=== PATIENT | female | born 1930 | race Caucasian/White ===

== ENCOUNTER 2016-08-03 20:02 | Emergency (ER) | payer MEDICARE ==
[~2016-08-03] VITALS: Ht 160 cm; Wt 62.0 kg
[~2016-08-03 20:02] MED LIST: ASPI81TA82 PO; BENZ100 PO; GLIM2TAB PO; LEVO125T3 PO; LOVA20TA PO; METO50 PO; TRIA37.512; ZITH250T PO
[2016-08-03 20:05] VITALS: BP 218/93; PULSE 70; RESP 20; TEMP 98; O2SAT 97
--- NOTE | 2016-08-03 20:30 | PD ---
HPI Chief Complaint: Fall Time Seen by Provider: 20:30 Travel History International Travel<30 days: No Contact w/Intl Traveler<30days: No Traveled to known affect area: No History of Present Illness HPI 86-year-old female with history of hypertension, diabetes, CAD, on anticoagulation therapy, presents to the emergency department for evaluation following a trip and fall. Patient states that she was [place] out[place] and stepped off of the curb. When she misstepped she fell wrecking her right side on the ground. She reports right rib pain. She did strike her head. She did not lose consciousness. She denies a shortness of breath. No focal deficits or weakness. Patient was able to ambulate after being helped up. She denies any hip pain or back pain. She has no other symptoms at this time to report. PFSH Past Medical History Hx Anticoagulant Therapy: Yes Arthritis: Yes Asthma: No Anxiety: No Depression: No Heart Rhythm Problems: No Cancer: No Cardiovascular Problems: Yes ([place], STENTS, HTN) High Cholesterol: Yes Chest Pain: No Congestive Heart Failure: No COPD: No Diabetes: Yes Patient Takes Glucophage: Yes (08/03/16 0900) Diminished Hearing: Yes ([facility] RIGHT EAR) Endocrine: Yes Genitourinary: No Hiatal Hernia: No Hypertension: Yes Immune Disorder: No Kidney Stones: No Musculoskeletal: Yes Neurologic: No Psychiatric: No Reproductive: No Respiratory: No Sickle Cell Disease: No Sleep Apnea: No Thyroid Disease: Yes Ulcer: No Tetanus Vaccination: Unknown Menopausal: Yes Past Surgical History AICD: No Arteriovenous Shunt: No Ear Surgery: No Endocrine Surgery: No Eye Surgery: No Insulin Pump: No Oral Surgery: No Pacemaker: No Social History Alcohol Use: Yes (1 DRINK WEEK) Tobacco Use: No Substance Use: No Allergies-Medications (Allergen,Severity, Reaction): Coded Allergies: Codeine (Verified Adverse Reaction, Intermediate, Rash, 04/10/14) Uncoded Allergies: AN UNKNOWN ANTIBIOTIC...PCN OK (Allergy, Unknown, 12/06/05) Reported Meds & Prescriptions Reported Meds & Active Scripts Active Reported Levothyroxine (Levothyroxine Sodium) 125 Mcg Tab 125 Mcg PO DAILY Metoprolol Tartrate 50 Mg Tab 50 Mg PO BID Lovastatin 20 Mg Tab 20 Mg PO HS Triamterene-Hydrochlorothiazide 37.5-25 Mg Tab 1 Tab PO DAILY Aspirin EC (Aspirin) 81 Mg Tabdr 81 Mg PO HS Glimepiride 1 Mg Tab 1 Mg PO DAILY Take with breakfast or first main meal Review of Systems Except as stated in HPI: all other systems reviewed are Neg Physical Exam Narrative GENERAL: Well-nourished female patient, ambulatory no acute distress SKIN: Focused skin assessment warm/dry. Abrasion to the right superior eyelid and right temporal bridle scalp. There is an abrasion of the muscle aspect of the right fourth digit. There is also abrasion on the right knee. HEAD: Atraumatic. Normocephalic. EYES: Pupils equal and round. No scleral icterus. No injection or drainage. ENT: No nasal bleeding or discharge. Mucous membranes pink and moist. NECK: Trachea midline. No JVD. CARDIOVASCULAR: Regular rate and rhythm. He over 6 systolic murmur appreciated. RESPIRATORY: No accessory muscle use. Clear to auscultation. Breath sounds equal bilaterally. Tenderness elicited palpation of the right anterior lateral rib cage. No crepitus. No deformity. Even respirations. GASTROINTESTINAL: Abdomen soft, non-tender, nondistended. Hepatic and splenic margins not palpable. MUSCULOSKELETAL: No obvious deformities. No clubbing. No cyanosis. No edema. NEUROLOGICAL: Awake and alert. No obvious cranial nerve deficits. Motor grossly within normal limits. Normal speech. PSYCHIATRIC: Appropriate mood and affect; insight and judgment normal. Data Data Last Documented VS Vital Signs Date Time Temp Pulse Resp B/P Pulse Ox O2 Delivery O2 Flow Rate FiO2 08/03/16 20:05 98.0 70 20 218/[address] Brain W/O Iv Contrast(Rout) (08/03/16 ) Ct Cerv Spine W/O Contrast (08/03/16 ) Chest, Single Ap (08/03/16 ) [facility] Medical Decision Making Medical Screen Exam Complete: Yes Emergency Medical Condition: Yes Medical Record Reviewed: Yes Differential Diagnosis Contusion versus fracture versus pneumothorax versus minor head injury versus intracranial hemorrhage versus scalp contusion Narrative Course 86 year-old female presents to emergency department for evaluation following a trip and fall. Patient appears without distress. There are no focal deficits or weakness. She does have abrasion to the right eyelid and temporoparietal scalp. She also has right anterior lateral rib cage tenderness to palpation. CT imaging of the cervical spine and brain are ordered. X-ray imaging of the rib cage is also ordered. At this time patient does not want any pain medication. 2100 CT imaging of the brain and cervical spine are without acute abnormality. X-rays without acute cardiopulmonary disease. Discussed the patient with my attending physician Dr. Bentley Patient will be discharged home at this time. Diagnosis Primary Impression: Minor head injury without loss of consciousness Qualified Code: S09.90XA - Minor head injury without loss of consciousness, initial encounter Additional Impressions: Facial abrasion Qualified Code: S00.81XA - Facial abrasion, initial encounter Contusion of rib on right side Qualified Code: S20.211A - Contusion of rib on right side, initial encounter Referrals: Primary Care Physician Patient Instructions: Facial Contusion (ED), General Instructions, Head Injury (ED), Rib Contusion (ED) Additional Instructions: Ice to the affected area It is important that you continue to take deep breaths to avoid risk of pneumonia despite rib pain Follow-up with a primary care provider Return immediately with any acute worsening of symptoms Take a stool softener and make sure you are drinking plenty of water if you are taking your prescribed narcotic pain medication as this puts you at higher risk for constipation. Med/Other Pt SpecificInfo: No Change to Meds Scripts Hydrocodone-Acetaminophen (Lortab)5-325 Mg Tab1 Tab PO Q6H PRN (PAIN GREATER THAN 6) #10 TAB Ref 0 Prov:Maurice Bentley MD 08/03/16 Disposition: 01 DISCHARGE HOME Condition: Stable Stephanie Saldana VIRIDIANA Aug 03, 2016 20:30
--- NOTE | 2016-08-03 21:06 | RADRPT ---
EXAM DATE/TIME: 08/03/2016 20:50 [facility] COMPARISON: No previous studies available for comparison. INDICATIONS : Chest pain atfer fall. MEDICAL HISTORY : None. SURGICAL HISTORY : None. ENCOUNTER: Initial ACUITY: 1 day PAIN SCORE: 5/10 LOCATION: Bilateral chest FINDINGS: A single view of the chest demonstrates the lungs to be symmetrically aerated without evidence of mas s, infiltrate or effusion. The cardiomediastinal contours are unremarkable. Osseous structures are intact. CONCLUSION: No evidence of acute cardiopulmonary disease. Agustin Martinez MD on August 03, 2016 at 21:03 Board Certified Radiologist. This report was verified electronically.
--- NOTE | 2016-08-03 21:07 | RADRPT ---
EXAM DATE/TIME: 08/03/2016 20:44 [facility] COMPARISON: No previous studies available for comparison. INDICATIONS : Tipped over curb & hit head, right eye bruised RADIATION DOSE: 56.35 CTDIvol (mGy) MEDICAL HISTORY : Cardiovascular disease. Hypertension. Diabetes mellitus type 2. SURGICAL HISTORY : None. ENCOUNTER: Initial ACUITY: 1 day PAIN SCALE: 5/10 LOCATION: Right cranial TECHNIQUE: Multiple contiguous axial images were obtained of the head. Using automated exposure control and adj ustment of the mA and/or kV according to patient size, radiation dose was kept as low as reasonably a chievable to obtain optimal diagnostic quality images. FINDINGS: CEREBRUM: The ventricles are normal for age. No evidence of midline shift, mass lesion, hemorrhage or acute in farction. No extra-axial fluid collections are seen. POSTERIOR FOSSA: The cerebellum and brainstem are intact. The 4th ventricle is midline. The cerebellopontine angle i s unremarkable. EXTRACRANIAL: The visualized portion of the orbits is intact. SKULL: The calvaria is intact. No evidence of skull fracture. CONCLUSION: Negative noncontrast head CT. Agustin Martinez MD on August 03, 2016 at 21:05 Board Certified Radiologist. This report was verified electronically.
[2016-08-03] MEDS ORDERED: TRIA37.5 PO (21:08)
[2016-08-03] MEDS ORDERED: METO50TA PO (21:08)
[2016-08-03] MEDS ORDERED: GLIM1TAB PO (21:08)
[2016-08-03] MEDS ORDERED: LOVA20TA PO (21:08)
[2016-08-03] MEDS ORDERED: ASPI81TA11 PO (21:08)
[2016-08-03] MEDS ORDERED: LEVO125T4 PO (21:09)
--- NOTE | 2016-08-03 21:10 | RADRPT ---
EXAM DATE/TIME: 08/03/2016 20:44 [facility] COMPARISON: No previous studies available for comparison. INDICATIONS : Tripped over a curb & hit head, right eye bruised. RADIATION DOSE: 31.98 CTDIvol (mGy) MEDICAL HISTORY : Cardiovascular disease. Hypertension. Diabetes mellitus type 2. SURGICAL HISTORY : None. ENCOUNTER: Initial ACUITY: 1 day PAIN SCALE: 4/10 LOCATION: neck TECHNIQUE: Volumetric scanning of the cervical spine was performed. Multiplanar reconstructions in the sagittal, coronal and oblique axial planes were performed. Using automated exposure control and adjustment o f the mA and/or kV according to patient size, radiation dose was kept as low as reasonably achievable to obtain optimal diagnostic quality images. FINDINGS: Cervical lordosis is exaggerated. There is approximately 2 mm of anterolisthesis at C7/T1, appears de generative. No fracture or acute appearing malalignment seen. Vertebral bodies have normal height. There is moderate to severe disc space narrowing at C5/C6 and C6/C7 with uncovertebral and facet oste oarthritis causing bilateral foraminal stenosis. Similar but slightly less severe degenerative change s are seen at C3/C4 and C4/C5 with time early right foraminal stenosis. No significant spinal stenosi s demonstrated. Juxtavertebral soft tissues are within normal limits. CONCLUSION: 1. No fracture or acute appearing malalignment of the cervical spine. 2. Multilevel degenerative changes as above. Agustin Martinez MD on August 03, 2016 at 21:05 Board Certified Radiologist. This report was verified electronically.
[2016-08-03] MEDS ORDERED: HYDR-3533 PO (21:16)
== END 2016-08-03 21:25 | disposition home or self-care (01) ==
LOC: NEPD 20:02
DX: S09.90XA Unspecified injury of head, initial encounter (principal); S20.211A Contusion of right front wall of thorax, initial encounter; S00.211A Abrasion of right eyelid and periocular area, initial encounter; S00.01XA Abrasion of scalp, initial encounter; S80.211A Abrasion, right knee, initial encounter; I10 Essential (primary) hypertension; E11.9 Type 2 diabetes mellitus without complications; E07.9 Disorder of thyroid, unspecified; E78.00 Pure hypercholesterolemia, unspecified; W01.0XXA Fall on same level from slipping, tripping and stumbling without subsequent striking against object, initial encounter; Y92.511 Restaurant or cafe as the place of occurrence of the external cause; Z79.01 Long term (current) use of anticoagulants; Z79.84 Long term (current) use of oral hypoglycemic drugs; Z86.79 Personal history of other diseases of the circulatory system; Z87.39 Personal history of other diseases of the musculoskeletal system and connective tissue
CPT/HCPCS: 70450; 71010; 72125

== ENCOUNTER 2017-09-27 14:05 | Emergency (ER) | payer MEDICARE ==
[~2017-09-27] VITALS: Ht 160 cm; Wt 60.0 kg
[~2017-09-27 14:05] MED LIST changes: +ASPI81TA23 PO; -ASPI81TA82 PO; -BENZ100 PO; +GLIM1TAB PO; -GLIM2TAB PO; +HYDR-3533 PO; -LEVO125T3 PO; +LEVO125T4 PO; -METO50 PO; +METO50TA PO; +TRIA37.5 PO; -TRIA37.512; -ZITH250T PO
[2017-09-27 14:10] VITALS: BP 189/81; PULSE 73; RESP 16; TEMP 97.7; O2SAT 99
[2017-09-27] MEDS ORDERED: traMADol HCL 50 MG TAB PO ONE (17:00)
--- NOTE | 2017-09-27 17:08 | PD ---
HPI Chief Complaint: Back/ Neck Pain or Injury Time Seen by Provider: 16:43 Travel History International Travel<30 days: No Contact w/Intl Traveler<30days: No Traveled to known affect area: No History of Present Illness HPI Patient presents to the emergency department. Patient had an x-ray which supposedly showed arthritis. He had an MRI on yesterday which showed bulging disc and a small bladder tumor. She is here in the emergency department for pain medication, as her primary care doctor did not give her any pain medication but place a pain management referral. She fell 2 weeks ago, which was prior to the MRI, but no recent fall. He states that the doctor gave her shot in the back and a muscle relaxer, but is still in pain. He denies fever, chills, nausea, vomiting, dysuria, urinary frequency, bowel or bladder changes, but reports some numbness and tingling down the right leg. Patient has known renal failure. PFSH Past Medical History Hx Anticoagulant Therapy: Yes Arthritis: Yes Asthma: No Anxiety: No Depression: No Heart Rhythm Problems: No Cancer: No Cardiac Catheterization: Yes Cardiovascular Problems: Yes High Cholesterol: Yes Chest Pain: No Congestive Heart Failure: No COPD: No Diabetes: Yes Patient Takes Glucophage: No Diminished Hearing: Yes ([place] RIGHT EAR) Endocrine: Yes Genitourinary: No Hiatal Hernia: No Hypertension: Yes Immune Disorder: No Kidney Stones: No Musculoskeletal: Yes Neurologic: No Psychiatric: No Reproductive: No Respiratory: No Sickle Cell Disease: No Sleep Apnea: No Thyroid Disease: Yes Ulcer: No Menopausal: Yes Past Surgical History AICD: No Arteriovenous Shunt: No Ear Surgery: No Endocrine Surgery: No Eye Surgery: No Insulin Pump: No Oral Surgery: No Pacemaker: No Social History Alcohol Use: Yes (1 DRINK WEEK) Tobacco Use: No Substance Use: No Allergies-Medications (Allergen,Severity, Reaction): Coded Allergies: codeine (Unverified Adverse Reaction, Intermediate, Rash, 09/27/17) Uncoded Allergies: AN UNKNOWN ANTIBIOTIC...PCN OK (Allergy, Unknown, 12/06/05) Reported Meds & Prescriptions Reported Meds & Active Scripts Active Tramadol (Tramadol HCl) 50 Mg Tab 50 Mg PO Q6H PRN 3 Days Reported Levothyroxine (Levothyroxine Sodium) 125 Mcg Tab 125 Mcg PO DAILY Metoprolol Tartrate 50 Mg Tab 50 Mg PO BID Lovastatin 20 Mg Tab 20 Mg PO HS Triamterene-Hydrochlorothiazide 37.5-25 Mg Tab 1 Tab PO DAILY Aspirin EC (Aspirin) 81 Mg Tabdr 81 Mg PO HS Review of Systems Except as stated in HPI: all other systems reviewed are Neg Physical Exam Narrative GENERAL: In discomfort secondary to pain SKIN: Focused skin assessment warm/dry. HEAD: Atraumatic. Normocephalic. EYES: Pupils equal and round. No scleral icterus. No injection or drainage. ENT: No nasal bleeding or discharge. Mucous membranes pink and moist. NECK: Trachea midline. No JVD. No focal C-spine tenderness. CARDIOVASCULAR: Regular rate and rhythm. No murmur appreciated. RESPIRATORY: No accessory muscle use. Clear to auscultation. Breath sounds equal bilaterally. GASTROINTESTINAL: Abdomen soft, non-tender, nondistended. Hepatic and splenic margins not palpable. MUSCULOSKELETAL: No obvious deformities. No clubbing. No cyanosis. No edema. No focal T or L-spine tenderness.+ R buttock pain. NEUROLOGICAL: Awake and alert. No obvious cranial nerve deficits. Motor grossly within normal limits. Normal speech. PSYCHIATRIC: Appropriate mood and affect; insight and judgment normal. Data Data Last Documented VS Vital Signs Date Time Temp Pulse Resp B/P (MAP) Pulse Ox O2 Delivery O2 Flow Rate FiO2 09/27/17 14:10 97.7 73 16 189/81 (117) 99 Orders Orders Tramadol (Ultram) (09/27/17 17:00) [facility] Medical Decision Making Medical Screen Exam Complete: Yes Emergency Medical Condition: Yes Differential Diagnosis Arthritis, sciatica, fracture/dislocation, bulging discs Narrative Course Patient presents to the emergency department complaining of back pain. MRI yesterday showed bulging disc. Will give tramadol 50 mg p.o. 1. 172: Patient reports feeling better after tramadol. She is ambulating in the ER. Will d/c. Physician Communication Physician Communication [id number]: Spoke to Dr. Horne, patient's PCP. He advised that she has known renal failure, so no NSAIDS. MRI showed bulging discs and small bladder tumor, which he doesn't think is causing the pain. He placed a urology referral. Also, referred to pain clinic. Request that I d/c her with tramdol 50mg po q6hrs prn x 3 days. She should call his office in the morning for a followup evaluation appointment. He states that her codeine allergy is nausea. Diagnosis Primary Impression: Back pain Qualified Codes: M54.41 - Lumbago with sciatica, right side Patient Instructions: Back Pain (ED), General Instructions Additional Instructions: 1. Meds as directed. 2. Call primary care doctor in the morning fro followup appointment. 3. Followup with Pain Management referral. 4. return to ER immediately fro fever, vomiting, inability to control bowel/bladder, or for any new/worrisome/worsening symptoms. Med/Other Pt SpecificInfo: Prescription(s) given Scripts Tramadol (Tramadol) 50 Mg Tab 50 MG PO Q6H Y for PAIN for 3 Days, #12 TAB 0 Refills Prov: Jacquelyn Vincent MD 09/27/17 Disposition: 01 DISCHARGE HOME Condition: Stable Jacquelyn Vincent MD Sep 27, 2017 17:08
[2017-09-27] MEDS ORDERED: TRAM50TA PO (17:09)
== END 2017-09-27 18:12 | disposition home or self-care (01) ==
LOC: NEPE 14:05
DX: M54.9 Dorsalgia, unspecified (principal); R20.0 Anesthesia of skin; I12.9 Hypertensive chronic kidney disease with stage 1 through stage 4 chronic kidney disease, or unspecified chronic kidney disease; E11.22 Type 2 diabetes mellitus with diabetic chronic kidney disease; N18.9 Chronic kidney disease, unspecified; E78.00 Pure hypercholesterolemia, unspecified; M19.90 Unspecified osteoarthritis, unspecified site; E07.9 Disorder of thyroid, unspecified; D49.4 Neoplasm of unspecified behavior of bladder
CPT/HCPCS: 99283

== ENCOUNTER 2017-11-14 18:34 | Inpatient (IN) ==
--- NOTE | 2017-11-14 18:46 | ED ---
HPI General Chief complaint: Stroke Alert Stated complaint: stroke alert/evac Time Seen by Provider: 11/14/17 18:39 Source: patient, family, EMS and RN notes reviewed Mode of arrival: EMS Limitations: physical limitation (stroke, aphasia) History of Present Illness HPI narrative: 87yF presenting with stroke. The patient's niece says that the patient was last seen normal around 14:30 today. Both she and the patient took a nap, and when the niece woke up (about 30 minutes prior to arrival), the patient was "speaking gibberish". The patient is unable to provide meaningful contribution to HPI due to aphasia. Related Data Home Medications Medication Instructions Recorded Confirmed B complex with C#20-folic acid 1 cap PO DAILY 11/14/17 11/14/17 [Nephrocaps] acyclovir See Label Instructions .ROUTE 11/14/17 11/14/17 .COMPLEX alprazolam 0.25 mg PO DAILY PRN 11/14/17 11/14/17 aspirin [Aspir-81] 81 mg PO DAILY 11/14/17 11/14/17 coenzyme Q10 [Co Q-10] 100 mg PO DAILY 11/14/17 11/14/17 cyanocobalamin (vitamin B-12) 1,000 mcg PO DAILY 11/14/17 11/14/17 [Vitamin B-12] ketorolac 1 mg/kg IM Q6-8H PRN 11/14/17 11/14/17 levothyroxine 125 mcg PO DAILY 11/14/17 11/14/17 lovastatin 20 mg PO DAILY 11/14/17 11/14/17 methocarbamol 500 mg PO TID 11/14/17 11/14/17 metoprolol tartrate 50 mg PO BID 11/14/17 11/14/17 potassium gluconate 595 mg PO DAILY 11/14/17 11/14/17 triamcinolone acetonide See Label Instructions .ROUTE 11/14/17 11/14/17 .COMPLEX Allergies Allergy/AdvReac Type Severity Reaction Status Date / Time codeine AdvReac Intermediate Rash Verified 11/14/17 19:23 AN UNKNOWN ANTIBIOTIC...PCN Allergy Unknown Edema Uncoded 11/14/17 19:23 OK Review of Systems ROS Unobtainable ROS Unobtainable: other (aphasia) PMFSH History History Provided By: Family Member Medical History Medical History Bladder mass (Acute) Bulging disc (Acute) HTN (hypertension) (Acute) Surgical History Surgical History Hx of heart surgery (Acute) Social History Social History Substance History: Unable to Obtain Smoking Status: Unknown if ever smoked How Often Do You Have a Drink Containing Alcohol: Unable to Obtain Exam Const Other: Mildly agitated HENMT Head: normocephalic and atraumatic Face and sinus: normal facial exam Eyes Other: Pupils 3 mm and reactive Chest Chest: normal inspection of the chest Resp Other: Clear to auscultation bilaterally Cardio Rate: regular rate Rhythm: regular rhythm Other: BP 220/100 on arrival GI Inspection: non-distended Palpation: soft and nontender Skin General: no rashes or lesions noted Neuro Other: Please see NIHSS as documented on arrival No facial droop Patient is able to name a phone but cannot name a pen Patient cannot tell me where she is or what year it is Motor strength 5/5 and sensation intact to all extremities Patient has difficulty following verbal commands but is able to mimic a command if shown Course Initial Documented Vital Signs Temperature 97 F L 11/14/17 18:40 Pulse Rate 69 11/14/17 18:40 Respiratory Rate 20 11/14/17 18:40 Blood Pressure 221/100 H 11/14/17 18:40 Pulse Oximetry 97 11/14/17 18:40 Last Documented Vital Signs Temperature 97 F L 11/14/17 18:40 Pulse Rate 80 11/14/17 19:30 Respiratory Rate 18 11/14/17 19:30 Blood Pressure 171/81 H 11/14/17 19:30 Pulse Oximetry 99 11/14/17 19:30 NIH Stroke Scale NIHSS Time Completed NIHSS Time Completed: 18:40 NIH Stroke Scale Level of Consciousness: 0-Alert Orientation Questions: 2-Neither task correct Responds to Commands: 1-One task correct Gaze Eye Movement: 0-Horizontal movement WNL Visual Hanley: 0-No visual field defect Facial Movement: 0-Normal Motor Functions Arm LEFT: 0-No drift Motor Functions Arm RIGHT: 0-No drift Motor Functions Leg LEFT: 0-No drift Motor Functions Leg RIGHT: 0-No drift Limb Ataxia: 0-No ataxia Sensory Loss: 0-No sensory loss Best Language: 1-Mild aphasia Articulation: 0-Normal Extinction or Inattention Sensory: 0-Absent Total: 4 Medical Decision Making MDM Narrative Medical decision making narrative: Assessment: 87yF presenting with stroke Plan: Stroke alert called on arrival; case discussed with Dr. Anguiano of neurology. She is not a candidate for tPA given onset of symptoms 4 hours prior to arrival and age CTH, CTA head/ neck Labs Case reviewed between Dr. 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 Case discussed with Dr. Amor of [facility]. I spoke with the patient's family at length about the results of her imaging and the need to keep her in the hospital; they understand and agree. Differential Diagnosis Differential Diagnosis: Differential diagnosis includes, but is not limited to: ischemic CVA, hemorrhagic CVA, hypoglycemia, encephalopathy Lab Data Result diagrams: 11/14/17 18:35 Lab Results 11/14/17 11/14/17 11/14/17 Range/Units 18:35 18:35 18:35 WBC 8.5 (4.0-11.0) th/mm3 RBC 4.25 (4.00-5.30) mil/mm3 Hgb 12.4 (11.6-15.3) gm/dL POC Hgb (Calc) 11.9 (11.6-15.3) g/dL Hct 36.9 (35.0-46.0) % POC Hct 35.0 (35-46.0) % MCV 86.9 (80.0-100.0) fL MCH 29.3 (27.0-34.0) pg MCHC 33.7 (32.0-36.0) % RDW 13.9 (11.6-17.2) % Plt Count 120 L (150-450) th/mm3 MPV 10.2 (7.0-11.0) fL Prelim Diff (Auto) Slide review pending Neut % (Auto) 54.3 (16.0-70.0) % Lymph % (Auto) 19.5 (9.0-44.0) % Izard % (Auto) 25.3 H (0.0-8.0) % Eos % (Auto) 0.6 (0.0-4.0) % Baso % (Auto) 0.3 (0.0-2.0) % Neut # (Auto) 4.6 (1.8-7.7) th/mm3 Lymph # (Auto) 1.7 (1.0-4.8) th/mm3 Izard # (Auto) 2.2 H (0.0-0.9) th/mm3 Eos # (Auto) 0.1 (0.0-0.4) th/mm3 Baso # (Auto) 0.0 (0.0-0.2) th/mm3 WBC Differential . Diff Scan Auto diff confirmed Differential Comment . Platelet Estimate Low L (Normal) Platelet Morphology Normal (Normal) RBC Morphology Normal (Normal) PT 10.6 (9.8-11.6) sec INR 1.0 Ratio APTT 25.1 (24.3-30.1) sec Fibrinogen 328 (227-377) mg/dL POC Sodium 135 L (137-144) mmol/L POC Potassium 4.1 (3.6-5.0) mmol/L POC Chloride 100 L (102-111) mmol/L POC BUN 32 H (5-21) mg/dL POC Creatinine 1.9 H (0.6-1.3) mg/dL POC Glucose 117 H (68-110) mg/dL Total Creatine Kinase 48 (26-192) U/L Troponin I 0.15 H (0.02-0.05) ng/mL 11/14/17 Range/Units 19:06 WBC (4.0-11.0) th/mm3 RBC (4.00-5.30) mil/mm3 Hgb (11.6-15.3) gm/dL POC Hgb (Calc) (11.6-15.3) g/dL Hct (35.0-46.0) % POC Hct (35-46.0) % MCV (80.0-100.0) fL MCH (27.0-34.0) pg MCHC (32.0-36.0) % RDW (11.6-17.2) % Plt Count (150-450) th/mm3 MPV (7.0-11.0) fL Prelim Diff (Auto) Neut % (Auto) (16.0-70.0) % Lymph % (Auto) (9.0-44.0) % Izard % (Auto) (0.0-8.0) % Eos % (Auto) (0.0-4.0) % Baso % (Auto) (0.0-2.0) % Neut # (Auto) (1.8-7.7) th/mm3 Lymph # (Auto) (1.0-4.8) th/mm3 Izard # (Auto) (0.0-0.9) th/mm3 Eos # (Auto) (0.0-0.4) th/mm3 Baso # (Auto) (0.0-0.2) th/mm3 WBC Differential Diff Scan Differential Comment Platelet Estimate (Normal) Platelet Morphology (Normal) RBC Morphology (Normal) PT (9.8-11.6) sec INR Ratio APTT (24.3-30.1) sec Fibrinogen (227-377) mg/dL POC Sodium (137-144) mmol/L POC Potassium (3.6-5.0) mmol/L POC Chloride (102-111) mmol/L POC BUN (5-21) mg/dL POC Creatinine (0.6-1.3) mg/dL POC Glucose 110 (68-110) mg/dL Total Creatine Kinase (26-192) U/L Troponin I (0.02-0.05) ng/mL Imaging Data Radiologist's impression: Chest X-Ray 11/14/17 18:41 CONCLUSION: No evidence of acute cardiopulmonary disease. Head CT 11/14/17 18:41 CONCLUSION: 1. No bleed or other acute intracranial abnormality demonstrated. No perceptible acute ischemic change. 2. Atrophy and chronic white matter changes. Report was called by [Dr. Martinez to Dr. Villalpando at 6:54 PM ] Head CTA 11/14/17 18:41 CONCLUSION: Acute appearing vessel truncation involving posterior branch vessels of the left middle cerebral artery distribution. Findings were discussed with the neurologist, Dr. Anguiano, by phone. Neck CTA 11/14/17 18:41 CONCLUSION: Chronic left greater than right atherosclerotic changes of the bilateral carotid bifurcations as described without hemodynamically significant narrowing. Discharge Plan Discharge Disposition Patient Disposition: 30 Still Patient Discharge Condition Condition: Critical Discharge Details Diagnosis: Ischemic cerebrovascular accident (CVA) Physicians Team ED Provider: Shannan Villalpando Primary Care Provider: Alejandro Helms Rxs /Orders / Referrals /Forms Prescriptions: No Action methocarbamol 500 mg Tablet 500 mg PO TID RF: 0 cyanocobalamin (vitamin B-12) [Vitamin B-12] 1,000 mcg Tablet 1,000 mcg PO DAILY RF: 0 aspirin [Aspir-81] 81 mg Tablet,Delayed Release (Dr/Ec) 81 mg PO DAILY RF: 0 alprazolam 0.25 mg Tablet 0.25 mg PO DAILY PRN (Reason: Anxiety) RF: 0 acyclovir 5 % Ointment See Label Instructions .ROUTE .COMPLEX RF: 0 levothyroxine 125 mcg Tablet 125 mcg PO DAILY RF: 0 triamcinolone acetonide 0.1 % Ointment See Label Instructions .ROUTE .COMPLEX RF: 0 metoprolol tartrate 50 mg Tablet 50 mg PO BID RF: 0 B complex with C#20-folic acid [Nephrocaps] 1 mg Capsule 1 cap PO DAILY RF: 0 lovastatin 20 mg Tablet 20 mg PO DAILY RF: 0 coenzyme Q10 [Co Q-10] 100 mg Capsule 100 mg PO DAILY RF: 0 potassium gluconate 595 mg (99 mg) Tablet 595 mg PO DAILY RF: 0 ketorolac 30 mg/mL Solution 1 mg/kg IM Q6-8H PRN (Reason: Pain) RF: 0 Discharge Interventions Interventions: Vital Signs Last Done: 11/14/17 19:30 Status ED Status: With Doctor
--- NOTE | 2017-11-14 18:57 | CT ---
EXAM DATE: 11/14/2017 6:52 PM EDT AGE/SEX: 87 years / Female INDICATIONS: Stroke alert confusion CLINICAL DATA: This is the patient's initial encounter. Patient reports that signs and symptoms have been present for 1 day and indicates a pain score of Nonresponsive. MEDICAL/SURGICAL HISTORY: Non-responsive. Non-responsive. RADIATION DOSE: 52.14 CTDI (mGy) COMPARISON: 08/03/2016. TECHNIQUE: CT of the head without contrast. Using automated exposure control and adjustment of the mA and/or kV according to patient size, radiation dose was kept as low as reasonably achievable to ob tain optimal diagnostic quality images. DICOM format image data is available electronically for revi ew and comparison. FINDINGS: Cerebrum: The ventricles are normal for age. No evidence of midline shift, mass lesion, hemorrhage or acute infarction. No extraaxial fluid collections are seen. Chronic white matter changes are agai n noted. Posterior Fossa: The cerebellum and brainstem are intact. The 4th ventricle is midline. The cerebe llopontine angle is unremarkable. Extracranial: The visualized portion of the orbits is intact. Skull: The calvaria is intact. No evidence of skull fracture. CONCLUSION: 1. No bleed or other acute intracranial abnormality demonstrated. No perceptible acute ischemic rodriguez ge. 2. Atrophy and chronic white matter changes. Report was called by [Dr. Martinez to Dr. Villalpando at 6:54 PM ] Electronically signed by: Agustin Martinez MD 11/14/2017 6:56 PM EDT
[2017-11-14 19:01] LABS: Baso % (Auto) 0.3 % (0.0-2.0); Eos # (Auto) 0.1 th/mm3 (0.0-0.4); Eos % (Auto) 0.6 % (0.0-4.0); Hematocrit 36.9 % (35.0-46.0); Hemoglobin 12.4 gm/dL (11.6-15.3); Lymph # (Auto) 1.7 th/mm3 (1.0-4.8); Lymph % (Auto) 19.5 % (9.0-44.0); Mean Corpuscular HGB Conc 33.7 % (32.0-36.0); Mean Corpuscular Hemoglobin 29.3 pg (27.0-34.0); Mean Corpuscular Volume 86.9 fL (80.0-100.0); Mean Platelet Volume 10.2 fL (7.0-11.0); Mono # (Auto) 2.2 th/mm3 (0.0-0.9); Mono % (Auto) 25.3 % (0.0-8.0); Neut # (Auto) 4.6 th/mm3 (1.8-7.7); Neut % (Auto) 54.3 % (16.0-70.0); Platelet Count 120 th/mm3 (150-450); Red Blood Count 4.25 mil/mm3 (4.00-5.30); Red Cell Distribution Width 13.9 % (11.6-17.2); White Blood Count 8.5 th/mm3 (4.0-11.0)
[2017-11-14] MEDS ORDERED: Labetalol HCl Inj 100 MG/20 ML Vial IV.PUSH ONE (19:14)
[2017-11-14 19:18] LABS: Activated Partial Thrombo Time 25.1 sec (24.3-30.1); Prothrombin Time 10.6 sec (9.8-11.6)
[2017-11-14 19:19] LABS: Troponin I 0.15 ng/mL (0.02-0.05)
--- NOTE | 2017-11-14 19:20 | CT ---
EXAM DATE: 11/14/2017 7:02 PM EDT AGE/SEX: 87 years / Female INDICATIONS: Confusion and unresponsive CLINICAL DATA: This is the patient's initial encounter. Patient reports that signs and symptoms have been present for 1 day and indicates a pain score of Nonresponsive. MEDICAL/SURGICAL HISTORY: Non-responsive. Non-responsive. RADIATION DOSE: 10.11 CTDI (mGy) ; Combined studies [place] [facility] [place]. . TECHNIQUE: Volumetric scanning was performed using a multi-row detector CT scanner during bolus infu krystina of 100 ml Visipaque 320 (iodixanol) nonionic water-soluble contrast as a cumulative dose for mu ltiple exams. The data was post processed with a variety of visualization algorithms including full volume maximum intensity projection, multi-planar sliding thin slab reformation, curved planar refor mation, and surface rendering techniques. Using automated exposure control and adjustment of the mA and/or kV according to patient size, radiation dose was kept as low as reasonably achievable to obtai n optimal diagnostic quality images. DICOM format image data is available electronically for review and comparison. FINDINGS: Focally truncated vessels demonstrated in the posterior left middle cerebral artery distribution invo lving the posterior temporal lobe and the adjacent parietal lobe. Mild intracranial atherosclerosis without other evidence of acute vessel truncation. Short segment 50 % narrowing seen within the anterior middle cerebral artery distribution branch that appears chronic. CONCLUSION: Acute appearing vessel truncation involving posterior branch vessels of the left middle c erebral artery distribution. Findings were discussed with the neurologist, Dr. Anguiano, by phone. Electronically signed by: Agustin Martinez MD 11/14/2017 7:18 PM EDT
--- NOTE | 2017-11-14 19:22 | CT ---
EXAM DATE: 11/14/2017 7:09 PM EDT AGE/SEX: 87 years / Female INDICATIONS: Confusion unresponsive CLINICAL DATA: This is the patient's initial encounter. Patient reports that signs and symptoms have been present for 1 day and indicates a pain score of Nonresponsive. MEDICAL/SURGICAL HISTORY: Non-responsive. Non-responsive. RADIATION DOSE: 10.11 CTDI (mGy) ; Combined studies COMPARISON: [facility] [place], [place] CERVICAL SPINE W/O CONTRAST, 08/03/2016. . TECHNIQUE: Volumetric scanning was performed using a multirow detector CT scanner during bolus infus ion of 100 ml Visipaque 320 (iodixanol) nonionic water-soluble contrast as a cumulative dose for mul tiple exams. The data was postprocessed with a variety of visualization algorithms including full-v olume maximum intensity projection, multiplanar sliding thin-slab reformation, curved-planar reformat ion, and surface-rendering techniques. Using automated exposure control and adjustment of the mA and /or kV according to patient size, radiation dose was kept as low as reasonably achievable to obtain o ptimal diagnostic quality images. DICOM format image data is available electronically for review and comparison. Percent stenosis is calculated using the diameter of the stenotic region over the diameter of the nor mal distal internal carotid artery. FINDINGS: There is calcified atherosclerotic plaque of both carotid bifurcations, mild on the right and moderat e on the left. No significant narrowing on the right. Short segment 30% or less narrowing of the left proximal internal carotid artery. No other areas of narrowing are demonstrated. Both internal caroti ds are tortuous. Left vertebral artery modestly dominant relative to the right. No acute posterior circulation abnorma lity demonstrated. CONCLUSION: Chronic left greater than right atherosclerotic changes of the bilateral carotid bifurcat ions as described without hemodynamically significant narrowing. Electronically signed by: Agustin Martinez MD 11/14/2017 7:21 PM EDT
[2017-11-14] MEDS: Sod Chloride 0.9% Inj 1,000 ML IV.CONT SCH ×2 (19:23→22:56)
--- NOTE | 2017-11-14 19:25 | XR ---
EXAM DATE: 11/14/2017 7:08 PM EDT AGE/SEX: 87 years / Female INDICATIONS: Stroke alert. CLINICAL DATA: This is the patient's subsequent encounter. Patient reports that signs and symptoms h ave been present for 1 day and indicates a pain score of Nonresponsive. MEDICAL/SURGICAL HISTORY: None. None. COMPARISON: [facility], XR CHEST PA AND LAT, 03/14/2017. . FINDINGS: A single AP view of the chest demonstrates the lungs to be symmetrically aerated without evidence of mass, infiltrate or effusion. The cardiomediastinal contours are unremarkable. Osseous structures a re intact. CONCLUSION: No evidence of acute cardiopulmonary disease. Electronically signed by: Agustin Martinez MD 11/14/2017 7:23 PM EDT
[2017-11-14 19:34] LABS: Platelet Morphology Normal (Normal); RBC Morphology Normal (Normal)
[2017-11-14] MEDS ORDERED: niCARdipine Inj 25 MG in Sodium Chlor 0.9% Inj 240 ML IV.CONT PRN (19:49)
[2017-11-14 20:46] LABS: Bilirubin,Urine Negative (Negative); Clarity,Urine Clear (Clear); Color,Urine Straw (Yellw/Straw); Glucose,Urine (UA) Negative (Negative); Leukocyte Esterase,Urine Negative (Negative); Nitrite,Urine Negative (Negative); Specific Gravity,Urine 1.015 (1.002-1.035); Squamous Epithelial Cell,Urine 1 /hpf (0-5)
[2017-11-14] MEDS ORDERED: ALPRAZolam 0.25 MG Tablet PO PRN (21:07)
[2017-11-14] MEDS ORDERED: Bisacodyl 10 MG Supp RECTAL PRN (21:13)
[2017-11-14] MEDS ORDERED: Acetaminophen 325 MG Tablet PO PRN (21:13)
--- NOTE | 2017-11-14 21:22 | P.HPCC ---
History of Present Illness Primary Care Physician: Alejandro Helms MD History of Present Illness: 87-year-old very pleasant female presents as a stroke alert. The patient's niece says that the patient was last seen normal around 14:30 today. Both she and the patient took a nap, and when the niece woke up (about 30 minutes prior to arrival), the patient was "speaking gibberish". The patient is unable to provide meaningful contribution to HPI due to aphasia. CT of the head shows Acute appearing vessel truncation involving posterior branch vessels of the left middle cerebral artery distribution. This was too small and distal for interventional radiology to intervene. The patient is outside the window for TPA which was discussed by ED attending and neurologist on-call Dr. Anguiano. Inpatient Certification: I certify that the inpatient services were ordered in accordance with Medicare regulations governing the order. This includes certification that hospital inpatient services are reasonable and necessary and in the case of services not specified as inpatient-only under 42 CFR 419.22(n), that they are appropriately provided as inpatient services in accordance to with the 2-midnight benchmark under 43 CFR 412.3(e) Estimated Total Length of Stay (Days): 5 Plans for Post Hospital Care: Not yet determined Review of Systems unobtainable due to mental condition PMFSH - History History Provided By: Family Member - Medical History Medical History: Medical History (Last Reviewed 11/14/17 @ 19:59 by Shannan Villalpando DO) Bladder mass Bulging disc HTN (hypertension) - Surgical History Surgical History: Surgical History (Last Reviewed 11/14/17 @ 19:59 by Shannan Villalpando DO) Hx of heart surgery - Tobacco History Smoking Status: Unknown if ever smoked - Alcohol History How Often Do You Have a Drink Containing Alcohol: Unable to Obtain - Substance Use History Substance History: Unable to Obtain - Immunization History Tetanus Immunization: Unable to Assess Hx Influenza Vaccine This Season: Unable to Assess Medications and Allergies Active Medications: Active Medications Acetaminophen (Tylenol) 650 mg PO Q6H PRN PRN Reason: PAIN 1-10 AND/OR FEVER >101F Acyclovir (Zovirax 5% Oint) 0 applicatio TOPICAL .COMPLEX [facility] Al Hydroxide/Mg Hydroxide (Milk Of Magnesia Liq) 30 ml PO Q12H PRN PRN Reason: Mild Constipation Albuterol (Duoneb Neb (Prn)) 1 ampul NEB Q2HR NEB PRN PRN Reason: WHEEZING Alprazolam (Xanax) 0.25 mg PO DAILY PRN PRN Reason: Anxiety Aspirin (Ecotrin) 81 mg PO DAILY [facility] Bisacodyl (Dulcolax Supp) 10 mg RECTAL DAILY PRN PRN Reason: SEVERE CONSITIPATION Chlorhexidine Gluconate (Chlorhexidine 2% Cloth) 3 pack TOPICAL DAILY@0400 [facility] Stop: 11/20/17 03:59 Chlorhexidine Gluconate (Chlorhexidine 2% Cloth) 3 pack TOPICAL DAILY@0400 PRN PRN Reason: Extra cloth needed Stop: 11/20/17 03:59 Cyanocobalamin (Vitamin B12) 1,000 mcg PO DAILY [facility] Famotidine (Pepcid Pf Inj) 20 mg IV.PUSH Q12HR [facility] Heparin Sodium (Porcine) (Heparin Inj) 5,000 units SQ Q8H [facility] Sodium Chloride (Ns Inj) 1,000 mls @ 70 mls/hr IV.CONT .[id number] [facility] Last Admin: 11/14/17 19:23 Dose: 70 mls/hr Nicardipine HCl 25 mg/ Sodium (Chloride) 250 mls @ 50 mls/hr IV.CONT TITRATE PRN; Protocol PRN Reason: Per Protocol Sodium Chloride (Ns Inj) 1,000 mls @ 84 mls/hr IV.CONT .[id number] [facility] Lactulose (Lactulose Liq) 30 ml PO DAILY PRN PRN Reason: SEVERE CONSITIPATION Levothyroxine Sodium (Synthroid) 125 mcg PO DAILY [facility] Methocarbamol (Robaxin) 500 mg PO TID [facility] Metoclopramide HCl (Reglan Inj) 5 mg IV.PUSH Q6HR [facility]; Protocol Metoprolol Tartrate (Lopressor) 50 mg PO BID [facility] Non-Formulary Medication (Coenzyme Q10 [Co Q-10]) 100 mg PO DAILY [facility] Non-Formulary Medication (Lovastatin [Lovastatin]) 20 mg PO DAILY [facility] Ondansetron HCl (Zofran Inj) 4 mg IV.PUSH Q6H PRN PRN Reason: NAUSEA OR VOMITING Senna/Docusate Sodium (Azalea-Colace) 1 tab PO BID [facility] Sennosides (Senokot) 17.2 mg PO Q12H PRN PRN Reason: Moderate Constipation Sodium Chloride (Ns Flush) 2 ml IV.FLUSH BID [facility] Sodium Chloride (Ns Flush) 2 ml IV.FLUSH PRN PRN PRN Reason: FLUSH AFTER USING IV ACCESS Vitamin B Complex/Vit C/Folic Acid (Nephrocaps) tab PO DAILY [facility] Allergies Allergy/AdvReac Type Severity Reaction Status Date / Time codeine AdvReac Intermediate Rash Verified 11/14/17 19:23 AN UNKNOWN ANTIBIOTIC...PCN Allergy Unknown Edema Uncoded 11/14/17 19:23 OK Home Medications Medication Instructions Recorded Confirmed Type B complex with C#20-folic acid 1 cap PO DAILY 11/14/17 11/14/17 History [Nephrocaps] acyclovir See Label Instructions .ROUTE 11/14/17 11/14/17 History .COMPLEX alprazolam 0.25 mg PO DAILY PRN 11/14/17 11/14/17 History aspirin [Aspir-81] 81 mg PO DAILY 11/14/17 11/14/17 History coenzyme Q10 [Co Q-10] 100 mg PO DAILY 11/14/17 11/14/17 History cyanocobalamin (vitamin B-12) 1,000 mcg PO DAILY 11/14/17 11/14/17 History [Vitamin B-12] ketorolac 1 mg/kg IM Q6-8H PRN 11/14/17 11/14/17 History levothyroxine 125 mcg PO DAILY 11/14/17 11/14/17 History lovastatin 20 mg PO DAILY 11/14/17 11/14/17 History methocarbamol 500 mg PO TID 11/14/17 11/14/17 History metoprolol tartrate 50 mg PO BID 11/14/17 11/14/17 History potassium gluconate 595 mg PO DAILY 11/14/17 11/14/17 History triamcinolone acetonide See Label Instructions .ROUTE 11/14/17 11/14/17 History .COMPLEX Results - Labs CBC & Chem 7: 11/14/17 18:35 Labs: Short CBC 11/14/17 Range/Units 18:35 WBC 8.5 (4.0-11.0) th/mm3 Hgb 12.4 (11.6-15.3) gm/dL Hct 36.9 (35.0-46.0) % Plt Count 120 L (150-450) th/mm3 Cardiac Enzymes 11/14/17 Range/Units 18:35 Total Creatine Kinase 48 (26-192) U/L Troponin I 0.15 H (0.02-0.05) ng/mL Urine 11/14/17 Range/Units 20:00 Urine Color Straw (Yellw/Straw) Urine Clarity Clear (Clear) Urine pH 7.0 (5.0-8.5) Ur Specific [place] 1.015 (1.002-1.035) Urine Protein Negative (Neg-Trace) mg/dL Urine Glucose (UA) Negative (Negative) mg/dL - Imaging Impressions Chest X-Ray 11/14/17 18:41 CONCLUSION: No evidence of acute cardiopulmonary disease. Head CT 11/14/17 18:41 CONCLUSION: 1. No bleed or other acute intracranial abnormality demonstrated. No perceptible acute ischemic change. 2. Atrophy and chronic white matter changes. Report was called by [Dr. Martinez to Dr. Villalpando at 6:54 PM ] Head CTA 11/14/17 18:41 CONCLUSION: Acute appearing vessel truncation involving posterior branch vessels of the left middle cerebral artery distribution. Findings were discussed with the neurologist, Dr. Agnuiano, by phone. Neck CTA 11/14/17 18:41 CONCLUSION: Chronic left greater than right atherosclerotic changes of the bilateral carotid bifurcations as described without hemodynamically significant narrowing. Exam Vital signs: Vital Signs 11/14/17 18:40 11/14/17 18:41 11/14/17 19:30 Temperature 97 F L Pulse Rate 69 69 80 Respiratory Rate 20 18 Blood Pressure 221/100 H 171/81 H Pulse Oximetry 97 96 99 11/14/17 20:45 11/14/17 21:01 Temperature Pulse Rate 77 80 Respiratory Rate 18 18 Blood Pressure 197/84 H 193/85 H Pulse Oximetry 98 98 Intake & Output 11/14/17 11/14/17 11/15/17 06:59 18:59 06:59 Weight 58.4 kg - Constitutional mild distress - Routine HEENT Exam Head: Present: normocephalic, atraumatic Eye: Present: PERRL. Absent: proptosis ENT: Present: mucous membranes moist - Routine Neck Exam Present: supple, full ROM. Absent: JVD, carotid bruit - Routine Chest/Breast/Axilla Exam Chest wall: Absent: tenderness - Routine Respiratory Exam Absent: accessory muscle use, rhonchi, stridor, wheezes - Routine Cardiovascular Exam Present: RRR, S1, S2 - Routine Abdominal Exam Present: soft, normoactive bowel sounds. Absent: tenderness, distended - Routine Extremities Exam Absent: cyanosis, clubbing, edema - Routine Skin Exam Present: intact. Absent: cyanosis, erythema - Routine Neurological Exam Present: alert, altered mental status Caprini VTE Risk Assessment Caprini VTE Risk Assessment: Moderate/High Risk (score >= 2) Caprini Risk Assessment Model: Point Value = 1 Point Value = 2 Point Value = 3 Point Value = 5 Age 41-60 Minor surgery BMI > 25 kg/m2 Swollen legs Varicose veins or History of unexplained or recurrent spontaneous Oral contraceptives or hormone replacement Sepsis (< 1 month) Serious lung disease, including pneumonia (< 1 month) Abnormal pulmonary function Acute myocardial infarction Congestive heart failure (< 1 month) History of inflammatory bowel disease Medical patient at bed rest Age 61-74 Arthroscopic surgery Major open surgery (> 45 min) Laparoscopic surgery (> 45 min) Malignancy Confined to bed (> 72 hours) Immobilizing plaster cast Central venous access Age >= 75 History of VTE Family history of VTE Factor V Leiden Prothrombin [id number] Lupus anticoagulant Anticardiolipin antibodies Elevated serum homocysteine Heparin-induced thrombocytopenia Other congenital or acquired thrombophilia Stroke (< 1 month) Elective arthroplasty Hip, pelvis, or leg fracture Acute spinal cord injury (< 1 month) Prophylaxis Regimen: Total Risk Factor Score Risk Level Prophylaxis Regimen 0-1 Low Early ambulation 2 Moderate Order ONE of the following: *Sequential Compression Device (SCD) *Heparin 5000 units SQ BID 3-4 Higher Order ONE of the following medications: *Heparin 5000 units SQ TID *Enoxaparin/Lovenox 40 mg SQ daily (WT < 150 kg, CrCl > 30 mL/min) *Enoxaparin/Lovenox 30 mg SQ daily (WT < 150 kg, CrCl > 10-29 mL/min) *Enoxaparin/Lovenox 30 mg SQ BID (WT < 150 kg, CrCl > 30 mL/min) AND/OR *Sequential Compression Device (SCD) 5 or more Highest Order ONE of the following medications: *Heparin 5000 units SQ TID (Preferred with Epidurals) *Enoxaparin/Lovenox 40 mg SQ daily (WT < 150 kg, CrCl > 30 mL/min) *Enoxaparin/Lovenox 30 mg SQ daily (WT < 150 kg, CrCl > 10-29 mL/min) *Enoxaparin/Lovenox 30 mg SQ BID (WT < 150 kg, CrCl > 30 mL/min) AND *Sequential Compression Device (SCD) Assessment and Plan - Assessment and Plan Plan: Left posterior branches MCA CVA -Not a candidate for TPA -Not a candidate for IR mechanical thrombectomy -Aspirin, statin Pravachol -Permissive hypertension -Neuro checks per unit protocol -PT and OT as tolerated -Speech and swallow eval and treat -Further management per neurology Hypertension -Resume home meds when okay 2 p.o. -Metoprolol Hypothyroidism -Levothyroxine Anxiety -alprazolam PRN DVT GI prophylaxis -Teds SCDs -Subcu heparin -Pepcid Critical Care: The total critical care time was 35 minutes. Time to perform other separately billable procedures was not included in the critical care time.
[2017-11-14] MEDS: Heparin - SQ 10,000 UNITS/ML Vial SQ SCH (22:56)
[2017-11-15] MEDS ORDERED: Chlorhexidine Gluconate 2% 1 Pack (2 Cloths) TOPICAL PRN (04:00)
[2017-11-15] MEDS: Chlorhexidine Gluconate 2% 1 Pack (2 Cloths) TOPICAL SCH (04:23)
[2017-11-15] MEDS: Levothyroxine 125 MCG Tablet PO SCH (06:00)
[2017-11-15] MEDS: Heparin - SQ 10,000 UNITS/ML Vial SQ SCH ×3 (06:00→20:28)
[2017-11-15 06:12] LABS: Baso % (Auto) 0.4 % (0.0-2.0); Eos % (Auto) 0.4 % (0.0-4.0); Hematocrit 34.9 % (35.0-46.0); Hemoglobin 11.9 gm/dL (11.6-15.3); Lymph # (Auto) 1.1 th/mm3 (1.0-4.8); Lymph % (Auto) 13.2 % (9.0-44.0); Mean Corpuscular Hemoglobin 29.4 pg (27.0-34.0); Mean Corpuscular Volume 86.5 fL (80.0-100.0); Mean Platelet Volume 10.8 fL (7.0-11.0); Mono % (Auto) 23.2 % (0.0-8.0); Neut # (Auto) 5.4 th/mm3 (1.8-7.7); Neut % (Auto) 62.8 % (16.0-70.0); Platelet Count 103 th/mm3 (150-450); Red Blood Count 4.03 mil/mm3 (4.00-5.30); Red Cell Distribution Width 13.9 % (11.6-17.2); White Blood Count 8.7 th/mm3 (4.0-11.0)
[2017-11-15 06:16] LABS: INR 1.1 Ratio; Prothrombin Time 11.2 sec (9.8-11.6)
[2017-11-15 06:33] LABS: Albumin 3.9 g/dL (3.4-5.0); Anion Gap 12 meq/L (5-15); Aspartate Aminotransferase 18 U/L (15-37); Blood Urea Nitrogen 27 mg/dL (7-18); Calcium 9.2 mg/dL (8.5-10.1); Carbon Dioxide 22.7 meq/L (21.0-32.0); Chloride 104 meq/L (98-107); Glomerular Filtration Rate 28 mL/min (>89); Glucose,Random 138 mg/dL (74-106); Magnesium 1.8 mg/dL (1.5-2.5); Potassium 3.6 meq/L (3.5-5.1); Sodium 139 meq/L (136-145)
[2017-11-15 06:37] LABS: Alanine Aminotransferase 21 U/L (10-53); Alkaline Phosphatase 82 U/L (45-117); Phosphorus 3.6 mg/dL (2.5-4.9); Total Protein 7.1 g/dL (6.4-8.2)
[2017-11-15] MEDS: Sod Chloride 0.9% Inj 1,000 ML IV.CONT SCH ×5 (07:14→23:33)
[2017-11-15] MEDS: Metoprolol Tartrate 50 MG Tablet PO SCH ×2 (08:30→20:29)
[2017-11-15] MEDS: Senna/Docusate Sodium 8.6/50 MG Tablet PO SCH ×2 (08:30→20:29)
[2017-11-15] MEDS: Vitamin B Complex/Vit C/Folic Tablet PO SCH (08:30)
[2017-11-15] MEDS: Methocarbamol 500 MG Tablet PO SCH ×3 (08:30→17:46)
[2017-11-15] MEDS: Famotidine PF Inj 20 MG/2 ML Vial IV.PUSH SCH ×2 (08:30→20:28)
[2017-11-15] MEDS ORDERED: Non-Formulary Drug (Coenzyme Q10 [Co Q-10] 100 MG) PO SCH (09:00)
[2017-11-15] MEDS ORDERED: Famotidine PF Inj 20 MG/2 ML Vial IV.PUSH SCH (09:00)
--- NOTE | 2017-11-15 09:14 | MB ---
cc: Harish Anguiano MD, PhD DATE: 11/15/2017 REASON FOR CONSULTATION: Stroke alert. HISTORY OF PRESENT ILLNESS: Ms. Kerns is an 87-year-old right-handed female who was last seen normal at 2:30 p.m. yesterday. The patient was taking a nap. When she awoke, her niece noted that she had difficulty talking, speaking "gibberish". [facility] was called and she was brought into the emergency room as a stroke alert. Was found to have at that time, a Wernicke aphasia with no focal motor deficits. Her NIH stroke scale was a 4. She underwent evaluation with CT scan of the brain which revealed no acute change. There was atrophy, chronic white matter changes identified. No hemorrhage was seen. She was outside of the therapeutic window for IV tPA. Given her advanced age of 87, she was not a candidate for the 4-1/2 hour window and she was definitely out of the 3-hour window last being seen normal at 2:30 p.m. Further evaluation was undertaken, therefore, with a CT angiogram of the head and neck to see if there is any large vessel occlusion amenable to interventional thrombectomy. She underwent a CT angiogram of the brain, which revealed a very distal left temporal MCA probable thrombus. The CTA of the neck revealed no evidence of any significant carotid artery stenosis. The case was reviewed by Dr. Ludwig Robb of the interventional radiology service who felt that the possible occlusion was very distal in the M2 or M3 branch or possibly representing vessel tortuosity. The possible occlusion was too distal however, for interventional extraction. The patient has, over the evening, remained essentially the same, although the family feels that she is a little bit more communicative. PAST MEDICAL HISTORY: She has a history of coronary artery disease with coronary stents. There is a history of hyperlipidemia and hypertension. She has a history of a bulging lumbar disk after a fall with some type of bladder mass. MEDICATIONS: 1. She does take aspirin at home one a day. She is on acyclovir, alprazolam as needed. The aspirin dose is 81 mg daily. She is on Coenzyme Q10, vitamin B12 1000 mcg p.o. daily, ketorolac as needed, Synthroid 125 mcg daily, lovastatin 20 mg daily, methocarbamol 500 mg t.i.d., metoprolol 50 mg b.i.d., potassium gluconate 595 mg daily, triamcinolone acetate. ALLERGIES: CODEINE AND ALSO PENICILLIN. NEUROLOGICAL EXAMINATION: VITAL SIGNS: Blood pressure 189/82, pulse is 96. She is in normal sinus rhythm. NEUROLOGIC: The patient is alert. She has difficulty following commands. She can follow simple midline commands such as closing her eyes, but she cannot follow any more complicated commands. Her speech is somewhat fluent; however, she talks with a lot of paraphasic errors. She is not able to repeat. There is no neglect phenomena. Cranial nerves are normal. Motor exam reveals no focal weakness. She has 5/5 strength of all groups in upper and lower extremities. There is no drift. Reflexes are symmetric. IMAGING STUDIES: CT of the brain, no acute changes by report. I did review the scan. There is possibly a low area of attenuation in the left posterior parietal occipital area, which would correlate with Wernicke's area. CTA is as noted above. LABORATORY DATA: Sodium is 135, potassium 4.1, chloride 100, BUN is 32, creatinine 1.71, glucose 117. Troponin 0.15. White count 8500, hemoglobin 12.4, hematocrit 36.9%, platelet count 120,000. Her PT 10.6, INR 1, aPTT 25.1. Fibrinogen 328. Urinalysis pH is 7, specific gravity 1.15. Negative dipstick. EKG: Normal sinus rhythm. IMPRESSION: Left posterior parietal stroke in Wernicke's area with Wernicke's aphasia. As noted above, the patient was outside the therapeutic window for IV tPA and she did not have a vessel occlusion that was amenable to endovascular therapy as noted above. At the present time, would recommend continuing to allow permissive hypertension, keeping the blood pressure on the high side, would not treat unless it gets over 210/110. We will evaluate her swallowing. Also, speech therapy consult. Would recommend if she is passes the swallow evaluation to add Plavix 75 mg daily to aspirin. We will obtain an echocardiogram, as well as lipid panel. Continue to monitor cardiac telemetry to be sure there is no atrial fibrillation. Thank you for asking me to see this patient in consult. Harish Anguiano MD, PhD EARLENE/ZHOU Young: 11/15/2017, 08:45 AM , 08:56 AM
[2017-11-15 09:38] LABS: Chol/HDL Ratio 2.06 Ratio; HDL Cholesterol 66.7 mg/dL (40.0-60.0)
[2017-11-15] MEDS: ACYCLOVIR 5% TOPICAL SCH ×4 (10:01→20:29)
--- NOTE | 2017-11-15 14:25 | ECHRPT ---
Indication: CVA/TIA CONCLUSIONS Normal left ventricular size. Mild concentric left ventricular hypertrophy. No regional wall motion abnormalities are present. The left ventricular systolic function is normal with an estimated ejection fraction in the range of 60-65%. Calcification of both mitral valve leaflets. Diffuse calcification of the aortic valve. Mild aortic valve stenosis. Aortic valve area is 0.83 cm. Aortic valve mean gradient is 20 mmHg. There is trace tricuspid valve regurgitation. Normal estimated pulmonary pressures. BP: / HR: Rhythm: Sinus MEASUREMENTS (Male / Female) Normal Values Technical Quality:Poor 2D ECHO LV Diastolic Diameter PLAX 4.0 cm 4.2 - 5.9 / 3.9 - 5.3 cm LV Systolic Diameter PLAX 3.1 cm IVS Diastolic Thickness 1.3 cm 0.6 - 1.0 / 0.6 - 0.9 cm LVPW Diastolic Thickness 1.3 cm 0.6 - 1.0 / 0.6 - 0.9 cm LV Relative Wall Thickness 0.7 LVOT Diameter 1.5 cm LV Ejection Fraction MOD 4C 65.0 % LV Ejection Fraction 4C AL 66.8 % M-MODE Aortic Root Diameter MM 2.5 cm LA Systolic Diameter MM 3.1 cm LA Ao Ratio MM 1.2 AV Cusp Separation MM 1.2 cm DOPPLER AV Peak Velocity 301.0 cm/s AV Peak Gradient 36.2 mmHg AV Mean Gradient 20.0 mmHg AV Velocity Time Integral 67.1 cm LVOT Peak Velocity 161.0 cm/s LVOT Peak Gradient 10.4 mmHg LVOT Velocity Time Integral 31.7 cm AV Area Cont Eq vti 0.8 cm AV Area Cont Eq pk 0.9 cm MV Area PHT 4.2 cm Mitral E Point Velocity 116.0 cm/s Mitral A Point Velocity 160.0 cm/s Mitral E to A Ratio 0.7 LV E' Lateral Velocity 5.2 cm/s Mitral E to LV E' Lateral Ratio 22.4 LV E' Septal Velocity 4.7 cm/s Mitral E to LV E' Septal Ratio 24.8 TR Peak Velocity 175.0 cm/s TR Peak Gradient 12.3 mmHg Right Atrial Pressure 10.0 mmHg Pulmonary Artery Systolic Pressu 22.3 mmHg Right Ventricular Systolic Press 22.3 mmHg PV Peak Velocity 111.0 cm/s PV Peak Gradient 4.9 mmHg FINDINGS LEFT VENTRICLE The left ventricular systolic function is normal with an estimated ejection fraction in the range of 60-65%. Normal left ventricular size. Mild concentric left ventricular hypertrophy. No regional wall motion abnormalities are present. RIGHT VENTRICLE Normal right ventricular size and systolic function. LEFT ATRIUM The left atrial size is normal. RIGHT ATRIUM The right atrial size is normal. ATRIAL SEPTUM Normal atrial septal thickness without atrial level shunting by limited color doppler interrogation. AORTA The aortic root and proximal ascending aorta are normal in size on limited imaging. MITRAL VALVE Structurally normal mitral valve. Calcification of both mitral valve leaflets. AORTIC VALVE Trileaflet aortic valve. Diffuse calcification of the aortic valve. Mild aortic valve stenosis. Aortic valve area is 0.83 cm. Aortic valve mean gradient is 20 mmHg. TRICUSPID VALVE Structurally normal tricuspid valve. There is trace tricuspid valve regurgitation. Normal estimated pulmonary pressures. PULMONARY VALVE No pulmonary valve regurgitation or stenosis. VESSELS The inferior vena cava is normal in size. PERICARDIUM No pericardial effusion. Chester Rosado MD, FACC, [facility] [place] (Electronically Signed) Final Date:15 November 2017 14:24
[2017-11-15] MEDS ORDERED: Temazepam 15 MG Capsule PO PRN (23:45)
[2017-11-16] MEDS: Chlorhexidine Gluconate 2% 1 Pack (2 Cloths) TOPICAL SCH (05:23)
[2017-11-16] MEDS: Heparin - SQ 10,000 UNITS/ML Vial SQ SCH ×3 (05:24→23:17)
[2017-11-16] MEDS: Levothyroxine 125 MCG Tablet PO SCH (05:24)
[2017-11-16] MEDS: Senna/Docusate Sodium 8.6/50 MG Tablet PO SCH ×2 (09:32→20:09)
[2017-11-16] MEDS: Methocarbamol 500 MG Tablet PO SCH ×3 (09:32→19:06)
[2017-11-16] MEDS: Metoprolol Tartrate 50 MG Tablet PO SCH ×2 (09:33→20:09)
[2017-11-16] MEDS: Vitamin B Complex/Vit C/Folic Tablet PO SCH (09:33)
[2017-11-16] MEDS: Famotidine PF Inj 20 MG/2 ML Vial IV.PUSH SCH (09:34)
[2017-11-16] MEDS: ACYCLOVIR 5% TOPICAL SCH ×4 (09:35→20:09)
--- NOTE | 2017-11-16 09:43 | P.PNIM ---
Subjective Interval history: pt pleasant. trying to express herself. follows commands family present Physical Exam Vital signs: Vital Signs 11/15/17 09:45 11/15/17 10:00 11/15/17 10:15 Temperature Pulse Rate 80 74 81 Respiratory Rate 17 15 23 Blood Pressure 190/81 H 184/80 H 202/88 H Pulse Oximetry 96 98 96 11/15/17 10:30 11/15/17 10:45 11/15/17 11:00 Temperature Pulse Rate 80 80 85 Respiratory Rate 36 H 28 H 29 H Blood Pressure 192/73 H 196/84 H Pulse Oximetry 97 98 97 11/15/17 11:01 11/15/17 11:15 11/15/17 11:30 Temperature Pulse Rate 83 83 80 Respiratory Rate 21 25 H 17 Blood Pressure 212/88 H 205/86 H 179/80 H Pulse Oximetry 98 98 98 11/15/17 11:45 11/15/17 12:00 11/15/17 12:12 Temperature 97.7 F Pulse Rate 80 93 H 86 Respiratory Rate 17 26 H 29 H Blood Pressure 189/77 H 189/77 H 190/86 H Pulse Oximetry 98 97 98 11/15/17 12:15 11/15/17 13:00 11/15/17 13:15 Temperature Pulse Rate 87 84 86 Respiratory Rate 30 H 19 20 Blood Pressure 193/82 H 166/71 H 175/74 H Pulse Oximetry 98 97 98 11/15/17 13:30 11/15/17 13:45 11/15/17 14:00 Temperature Pulse Rate 81 82 83 Respiratory Rate 18 15 20 Blood Pressure 179/77 H 173/65 H 169/74 H Pulse Oximetry 98 98 98 11/15/17 14:15 11/15/17 14:30 11/15/17 14:46 Temperature Pulse Rate 82 82 88 Respiratory Rate 24 21 30 H Blood Pressure 187/79 H 178/77 H 212/93 H Pulse Oximetry 98 99 98 11/15/17 14:58 11/15/17 15:00 11/15/17 16:00 Temperature Pulse Rate 79 81 85 Respiratory Rate 20 18 26 H Blood Pressure 185/69 H 189/81 H 191/88 H Pulse Oximetry 98 99 98 11/15/17 16:15 11/15/17 16:30 11/15/17 16:45 Temperature Pulse Rate 81 79 91 H Respiratory Rate 26 H 27 H 43 H Blood Pressure 188/81 H 181/79 H 182/70 H Pulse Oximetry 98 98 98 11/15/17 17:00 11/15/17 17:15 11/15/17 17:30 Temperature Pulse Rate 83 82 80 Respiratory Rate 23 Blood Pressure 189/86 H 179/81 H 178/77 H Pulse Oximetry 98 98 97 11/15/17 17:45 11/15/17 18:00 11/15/17 18:15 Temperature Pulse Rate 80 81 91 H Respiratory Rate Blood Pressure 186/81 H 188/85 H 195/90 H Pulse Oximetry 98 99 98 11/15/17 18:31 11/15/17 19:00 11/15/17 20:00 Temperature 98.5 F Pulse Rate 82 90 90 Respiratory Rate 19 18 Blood Pressure 181/79 H 187/55 H 172/74 H Pulse Oximetry 98 98 96 11/15/17 20:10 11/15/17 21:00 11/15/17 22:00 Temperature Pulse Rate 77 82 Respiratory Rate 19 16 Blood Pressure 168/72 H 139/63 Pulse Oximetry 98 97 97 11/15/17 23:00 11/16/17 00:00 11/16/17 01:00 Temperature 98.5 F Pulse Rate 83 79 80 Respiratory Rate 19 18 19 Blood Pressure 144/61 H 182/77 H 215/133 H Pulse Oximetry 97 97 97 11/16/17 02:00 11/16/17 03:00 11/16/17 04:00 Temperature 97.7 F Pulse Rate 81 94 H 76 Respiratory Rate 19 22 16 Blood Pressure 205/84 H 209/88 H 209/88 H Pulse Oximetry 97 99 99 11/16/17 05:00 11/16/17 06:00 Temperature Pulse Rate 86 89 Respiratory Rate 26 H 29 H Blood Pressure 205/86 H Pulse Oximetry 100 98 Intake & Output 11/15/17 11/16/17 11/16/17 18:59 06:59 18:59 Intake Total 3000 / 3000 1240 / 1240 Output Total 600 / 600 1150 / 1150 Balance 2400 / 2400 90 / 90 Weight 58.8 kg Intake: IV 3000 / 3000 1000 / 1000 NS Inj 1,000 ML @ 84 mls/hr IV. 3000 / 3000 1000 / 1000 CONT .[id number] [facility] [place] Rx#:[id number] Oral 240 / 240 Output: Urine 600 / 600 1150 / 1150 Other: Date of Last Bowel Movement 11/15/17 11/15/17 # Bowel Movements 0 expressive aphasia no jvd or bruit systolic murmer lsb. radiated to axilla lung cta abd s/nt ext no edema moves all 4 extremities. Results - Labs CBC & Chem 7: 11/15/17 03:16 11/15/17 03:16 Laboratory Results - last 24 hr 11/15/17 11/15/17 03:16 10:59 POC Glucose 220 H Triglycerides 85 Cholesterol 138 LDL Cholesterol, Calc 54 HDL Cholesterol 66.7 H Cholesterol/HDL Ratio 2.06 Assessment and Plan - Assessment (1) Ischemic cerebrovascular accident (CVA) Code(s): I63.9 - Cerebral infarction, unspecified Status: Acute - Plan 1. Left MCA acute cva. thrombus. Wernicke aphasia permissive htn asa/plavix ivf pt had been agitated and restless. will try ativan for MRI echo noted. pt/ot/st passed swallow eval neurology following. 2. hx htn allow permissive htn
[2017-11-16] MEDS: Sod Chloride 0.9% Inj 1,000 ML IV.CONT SCH (12:31)
--- NOTE | 2017-11-16 15:00 | P.PNNEU ---
Subjective Subjective Comments: No acute events reported Her family feel her speech and comprehension slowly improving Active Medications: Active Medications Acetaminophen (Tylenol) 650 mg PO Q6H PRN PRN Reason: PAIN 1-10 AND/OR FEVER >101F Last Admin: 11/15/17 17:46 Dose: 650 mg Acyclovir (Zovirax 5% Oint) 0 applicatio TOPICAL QID [facility] Last Admin: 11/16/17 13:48 Dose: Not Given Al Hydroxide/Mg Hydroxide (Milk Of Magnesia Liq) 30 ml PO Q12H PRN PRN Reason: Mild Constipation Albuterol (Duoneb Neb (Prn)) 1 ampul NEB Q2HR NEB PRN PRN Reason: WHEEZING Aspirin (Ecotrin) 81 mg PO DAILY [facility] Last Admin: 11/16/17 09:33 Dose: 81 mg Bisacodyl (Dulcolax Supp) 10 mg RECTAL DAILY PRN PRN Reason: SEVERE CONSITIPATION Chlorhexidine Gluconate (Chlorhexidine 2% Cloth) 3 pack TOPICAL DAILY@0400 [facility] Stop: 11/20/17 03:59 Last Admin: 11/16/17 05:23 Dose: 3 pack Chlorhexidine Gluconate (Chlorhexidine 2% Cloth) 3 pack TOPICAL DAILY@0400 PRN PRN Reason: Extra cloth needed Stop: 11/20/17 03:59 Clopidogrel Bisulfate (Plavix) 75 mg PO DAILY [facility] Last Admin: 11/16/17 09:32 Dose: 75 mg Cyanocobalamin (Vitamin B12) 1,000 mcg PO DAILY [facility] Last Admin: 11/16/17 09:32 Dose: 1,000 mcg Heparin Sodium (Porcine) (Heparin Inj) 5,000 units SQ Q8H [facility] Last Admin: 11/16/17 13:47 Dose: 5,000 units Sodium Chloride (Ns Inj) 1,000 mls @ 84 mls/hr IV.CONT .[id number] [facility] Last Admin: 11/16/17 12:31 Dose: 84 mls/hr Lactulose (Lactulose Liq) 30 ml PO DAILY PRN PRN Reason: SEVERE CONSITIPATION Levothyroxine Sodium (Synthroid) 125 mcg PO DAILY@0600 [facility] Last Admin: 11/16/17 05:24 Dose: 125 mcg Lorazepam (Ativan Inj) 0.5 mg IV.PUSH Q4H PRN PRN Reason: AGITATION Methocarbamol (Robaxin) 500 mg PO TID [facility] Last Admin: 11/16/17 13:46 Dose: 500 mg Metoprolol Tartrate (Lopressor) 50 mg PO BID [facility] Last Admin: 11/16/17 09:33 Dose: 50 mg Ondansetron HCl (Zofran Inj) 4 mg IV.PUSH Q6H PRN PRN Reason: NAUSEA OR VOMITING Pantoprazole Sodium (Protonix) 40 mg PO DAILY [facility] Pravastatin Sodium (Pravachol) 20 mg PO DAILY [facility] Last Admin: 11/16/17 09:33 Dose: 20 mg Senna/Docusate Sodium (Azalea-Colace) 1 tab PO BID [facility] Last Admin: 11/16/17 09:32 Dose: 1 tab Sennosides (Senokot) 17.2 mg PO Q12H PRN PRN Reason: Moderate Constipation Sodium Chloride (Ns Flush) 2 ml IV.FLUSH BID [facility] Last Admin: 11/16/17 09:33 Dose: 2 ml Sodium Chloride (Ns Flush) 2 ml IV.FLUSH PRN PRN PRN Reason: FLUSH AFTER USING IV ACCESS Tramadol HCl (Ultram) 50 mg PO Q6H PRN PRN Reason: pain 3-10 Vitamin B Complex/Vit C/Folic Acid (Nephrocaps) 1 tab PO DAILY [facility] Last Admin: 11/16/17 09:33 Dose: 1 tab Allergies/Adverse Reactions: Allergies Allergy/AdvReac Type Severity Reaction Status Date / Time codeine AdvReac Intermediate Rash Verified 11/14/17 19:23 AN UNKNOWN ANTIBIOTIC...PCN Allergy Unknown Edema Uncoded 11/14/17 19:23 OK Physical Exam Vital signs: Vital Signs 11/15/17 14:58 11/15/17 15:00 11/15/17 16:00 Temperature Pulse Rate 79 81 85 Respiratory Rate 20 18 26 H Blood Pressure 185/69 H 189/81 H 191/88 H Pulse Oximetry 98 99 98 11/15/17 16:15 11/15/17 16:30 11/15/17 16:45 Temperature Pulse Rate 81 79 91 H Respiratory Rate 26 H 27 H 43 H Blood Pressure 188/81 H 181/79 H 182/70 H Pulse Oximetry 98 98 98 11/15/17 17:00 11/15/17 17:15 11/15/17 17:30 Temperature Pulse Rate 83 82 80 Respiratory Rate 23 Blood Pressure 189/86 H 179/81 H 178/77 H Pulse Oximetry 98 98 97 11/15/17 17:45 11/15/17 18:00 11/15/17 18:15 Temperature Pulse Rate 80 81 91 H Respiratory Rate Blood Pressure 186/81 H 188/85 H 195/90 H Pulse Oximetry 98 99 98 11/15/17 18:31 11/15/17 19:00 11/15/17 20:00 Temperature 98.5 F Pulse Rate 82 90 90 Respiratory Rate 19 18 Blood Pressure 181/79 H 187/55 H 172/74 H Pulse Oximetry 98 98 96 11/15/17 20:10 11/15/17 21:00 11/15/17 22:00 Temperature Pulse Rate 77 82 Respiratory Rate 19 16 Blood Pressure 168/72 H 139/63 Pulse Oximetry 98 97 97 11/15/17 23:00 11/16/17 00:00 11/16/17 01:00 Temperature 98.5 F Pulse Rate 83 79 80 Respiratory Rate 19 18 19 Blood Pressure 144/61 H 182/77 H 215/133 H Pulse Oximetry 97 97 97 11/16/17 02:00 11/16/17 03:00 11/16/17 04:00 Temperature 97.7 F Pulse Rate 81 94 H 76 Respiratory Rate 19 22 16 Blood Pressure 205/84 H 209/88 H 209/88 H Pulse Oximetry 97 99 99 11/16/17 05:00 11/16/17 06:00 11/16/17 08:00 Temperature 97.9 F Pulse Rate 86 89 83 Respiratory Rate 26 H 29 H 25 H Blood Pressure 205/86 H 201/96 H Pulse Oximetry 100 98 98 Intake & Output 11/15/17 11/16/17 11/16/17 18:59 06:59 18:59 Intake Total 3000 / 3000 1240 / 1240 100 / 100 Output Total 600 / 600 1150 / 1150 Balance 2400 / 2400 90 / 90 100 / 100 Weight 58.8 kg Intake: IV 3000 / 3000 1000 / 1000 100 / 100 NS Inj 1,000 ML @ 84 mls/hr IV. 3000 / 3000 1000 / 1000 100 / 100 CONT .[id number] [facility] Rx#:[id number] Oral 240 / 240 Output: Urine 600 / 600 1150 / 1150 Other: Date of Last Bowel Movement 11/15/17 11/15/17 11/15/17 # Bowel Movements 0 - Routine Neurological Exam alert. able to follow simple commands better today still making some paraphasic errors in speechb CN intact MOTOR 5/5 BUE and BLE. no drift Review/Management - Diagnosis (1) CVA (cerebral vascular accident) Code(s): I63.9 - Cerebral infarction, unspecified Status: Acute Current Visit: Yes - Review/Management Plan: continue current care mri brain and mra brain
--- NOTE | 2017-11-16 16:28 | MR ---
EXAM DATE: 11/16/2017 4:20 PM EDT AGE/SEX: 87 years / Female INDICATIONS: Stroke. CLINICAL DATA: This is the patient's initial encounter. Patient reports that signs and symptoms have been present for 1 day and indicates a pain score of 2/10. MEDICAL/SURGICAL HISTORY: Hypertension. Renal insufficiency, chronic. Carotid stent. COMPARISON: [facility] – [place], CTA HEAD W CONTRAST W 3D, 11/14/2017. [facility] [place], CT HEAD W/O CONTRAST, 11/14/2017. . TECHNIQUE: Multiplanar, multisequence examination of the brain was performed without contrast. FINDINGS: An area of subacute cortical infarction measuring roughly 3.4 x 5.1 cm in greatest transaxial dimensi on and involves the posterior portions of the left temporal lobe and the adjacent parietal lobe. No o ther restricted diffusion is demonstrated. No intracranial hemorrhage or hematoma. No mass, mass effect or midline shift. Moderate severity dynamo tender unruly FLAIR signal abnormality seen of the lateral periventricular white matter. CONCLUSION: 1. Small subacute infarct of the left temporal and parietal lobes. 2. No bleed, mass effect or midline shift. Electronically signed by: Agustin Martinez MD 11/16/2017 4:26 PM EDT
--- NOTE | 2017-11-16 17:00 | MR ---
EXAM DATE: 11/16/2017 4:19 PM EDT AGE/SEX: 87 years / Female INDICATIONS: Stroke. CLINICAL DATA: This is the patient's initial encounter. Patient reports that signs and symptoms have been present for 1 day and indicates a pain score of 4/10. MEDICAL/SURGICAL HISTORY: Hypertension. Renal insufficiency, chronic. Coronary artery stent. [place] [facility] [place]. . TECHNIQUE: 3D [id number] MRA was performed. Source images, multiplanar STS MIP, and 3D volum e MIP reconstructions were reviewed. FINDINGS: There is excellent visualization of the major intracranial arteries out to the second-order branch ve ssels. There is no evidence for aneurysm, vessel truncation or stenosis, and no evidence for vascula r malformation. CONCLUSION: Intracranial vessels are all patent without aneurysmal disease. Electronically signed by: Silvio Irene MD 11/16/2017 4:59 PM EDT
--- NOTE | 2017-11-16 17:56 | MR ---
EXAM DATE: 11/16/2017 5:38 PM EDT AGE/SEX: 87 years / Female INDICATIONS: Stroke. CLINICAL DATA: This is the patient's initial encounter. Patient reports that signs and symptoms have been present for 1 day and indicates a pain score of 3/10. MEDICAL/SURGICAL HISTORY: Hypertension. Renal insufficiency, chronic. Coronary artery stent. COMPARISON: [facility] [place]ECK W CONTRAST W 3D, 11/14/2017. . TECHNIQUE: 3D time-of- flight MRA of the extracranial circulation was performed using a neurovascul ar coil. Post processing was performed including rotating sub-volume maximum intensity projections o f each carotid artery, rotating full-volume maximum intensity projections of both carotid arteries, s agittal and coronal sliding thin-slab reformations of each carotid artery, and left oblique sliding t hin-slab reformation through the aortic arch to include the origin of the arch branch vessels. FINDINGS: Aortic Arch : Motion artifact degrades the evaluation of the arch vessels. There is a two-vessel or igin of the great vessels from the aorta. No evidence of ostial narrowing appreciated. Right Carotid : The common carotid artery is intact. The carotid bulb has a normal configuration wi thout ulceration or narrowing. The internal carotid artery lumen is smooth without stenosis. The ex ternal carotid artery is intact. Left Carotid : The common carotid artery is intact. The carotid bulb has a normal configuration wit hout ulceration or narrowing. The internal carotid artery lumen is smooth without stenosis. The ext ernal carotid artery is intact. Vertebrals : The vertebral arteries have a symmetric diameter. No stenotic lesions are seen. CONCLUSION: 1. No significant stenosis involving either carotid artery or vertebral artery. The extracranial ICA s are very tortuous bilaterally. Percent stenosis is calculated using the diameter of the stenotic region over the diameter of the nor mal distal internal carotid artery Electronically signed by: Hari Robb MD 11/16/2017 5:55 [facility]
[2017-11-17] MEDS: Chlorhexidine Gluconate 2% 1 Pack (2 Cloths) TOPICAL SCH (06:00)
[2017-11-17] MEDS: Heparin - SQ 10,000 UNITS/ML Vial SQ SCH ×3 (06:00→20:29)
[2017-11-17] MEDS: Sod Chloride 0.9% Inj 1,000 ML IV.CONT SCH ×3 (06:01→20:30)
[2017-11-17] MEDS: Levothyroxine 125 MCG Tablet PO SCH (06:01)
[2017-11-17 07:52] LABS: Baso % (Auto) 0.4 % (0.0-2.0); Eos # (Auto) 0.1 th/mm3 (0.0-0.4); Hemoglobin 12.2 gm/dL (11.6-15.3); Mean Corpuscular HGB Conc 34.7 % (32.0-36.0); Mean Corpuscular Hemoglobin 29.9 pg (27.0-34.0); Mean Corpuscular Volume 86.3 fL (80.0-100.0); Mean Platelet Volume 10.4 fL (7.0-11.0); Mono # (Auto) 1.7 th/mm3 (0.0-0.9); Mono % (Auto) 25.5 % (0.0-8.0); Neut # (Auto) 3.8 th/mm3 (1.8-7.7); Neut % (Auto) 58.1 % (16.0-70.0); Platelet Count 107 th/mm3 (150-450); Red Blood Count 4.06 mil/mm3 (4.00-5.30); Red Cell Distribution Width 13.9 % (11.6-17.2); White Blood Count 6.6 th/mm3 (4.0-11.0)
[2017-11-17 08:19] LABS: Calcium 8.3 mg/dL (8.5-10.1); Carbon Dioxide 23.5 meq/L (21.0-32.0); Potassium 3.4 meq/L (3.5-5.1)
[2017-11-17] MEDS: ACYCLOVIR 5% TOPICAL SCH ×4 (09:30→20:31)
[2017-11-17] MEDS: Metoprolol Tartrate 50 MG Tablet PO SCH ×2 (09:43→20:29)
[2017-11-17] MEDS: Senna/Docusate Sodium 8.6/50 MG Tablet PO SCH ×2 (09:44→20:29)
[2017-11-17] MEDS: Methocarbamol 500 MG Tablet PO SCH ×3 (09:44→18:50)
[2017-11-17] MEDS: Vitamin B Complex/Vit C/Folic Tablet PO SCH (09:44)
--- NOTE | 2017-11-17 10:46 | P.PNIM ---
Subjective Interval history: able to express herself a little better follows commands. Physical Exam Vital signs: Vital Signs 11/16/17 11:00 11/16/17 12:00 11/16/17 13:00 Temperature 98 F Pulse Rate 68 80 72 Respiratory Rate 13 18 15 Blood Pressure 143/65 H 208/91 H 195/84 H Pulse Oximetry 100 100 98 11/16/17 14:00 11/16/17 16:00 11/16/17 17:00 Temperature 98.2 F Pulse Rate 82 84 74 Respiratory Rate 23 20 15 Blood Pressure 202/92 H 179/78 H 207/89 H Pulse Oximetry 98 97 96 11/16/17 18:00 11/16/17 20:00 11/16/17 20:07 Temperature 98.8 F Pulse Rate 72 78 Respiratory Rate 20 19 Blood Pressure 195/84 H 189/78 H Pulse Oximetry 97 97 97 11/16/17 22:00 11/17/17 00:00 11/17/17 04:57 Temperature 97.3 F L 97.3 F L Pulse Rate 66 79 68 Respiratory Rate 17 16 Blood Pressure 200/85 H 193/88 H Pulse Oximetry 95 97 11/17/17 08:00 Temperature Pulse Rate Respiratory Rate Blood Pressure Pulse Oximetry 98 Intake & Output 11/16/17 11/17/17 11/17/17 18:59 06:59 18:59 Intake Total 700 / 700 1060 / 1060 Output Total 500 / 500 1000 / 1000 Balance 200 / 200 60 / 60 Weight 58.1 kg Intake: IV 100 / 100 1000 / 1000 NS Inj 1,000 ML @ 84 mls/hr IV. 100 / 100 1000 / 1000 CONT .[id number] [facility] Rx#:[id number] Oral 600 / 600 60 / 60 Output: Urine 500 / 500 1000 / 1000 Other: # Voids 2 4 Date of Last Bowel Movement 11/15/17 11/15/17 # Bowel Movements 0 0 expressive aphasia with mild improvement moves all 4 ext's. follows command heart reg lung cta abd s/nt ext no edema Results - Labs CBC & Chem 7: 11/17/17 06:59 11/17/17 06:59 Laboratory Results - last 24 hr 11/17/17 11/17/17 06:59 06:59 WBC 6.6 RBC 4.06 Hgb 12.2 Hct 35.0 MCV 86.3 MCH 29.9 MCHC 34.7 RDW 13.9 Plt Count 107 L MPV 10.4 Neut % (Auto) 58.1 Lymph % (Auto) 15.0 [place] % (Auto) 25.5 H Eos % (Auto) 1.0 Baso % (Auto) 0.4 Neut # (Auto) 3.8 Lymph # (Auto) 1.0 [place] # (Auto) 1.7 H Eos # (Auto) 0.1 Baso # (Auto) 0.0 WBC Differential . Differential Comment Auto diff final Sodium 142 Potassium 3.4 L Chloride 110 H Carbon Dioxide 23.5 Anion Gap 9 BUN 16 Creatinine 1.50 H Estimated GFR 33 L Random Glucose 119 H Calcium 8.3 L - Imaging Impressions Head MRI 11/16/17 00:00 CONCLUSION: 1. Small subacute infarct of the left temporal and parietal lobes. 2. No bleed, mass effect or midline shift. Head MRA 11/16/17 00:00 CONCLUSION: Intracranial vessels are all patent without aneurysmal disease. Neck MRA 11/16/17 00:00 CONCLUSION: 1. No significant stenosis involving either carotid artery or vertebral artery. The extracranial ICAs are very tortuous bilaterally. _ Percent stenosis is calculated using the diameter of the stenotic region over the diameter of the normal distal internal carotid artery _ Assessment and Plan - Assessment (1) Ischemic cerebrovascular accident (CVA) Code(s): I63.9 - Cerebral infarction, unspecified Status: Acute - Plan 1. Left MCA acute cva. thrombus. Wernicke aphasia mri shows left temporoparietal distribution ischemic cva. permissive htn asa/plavix ivf transfer to 5n neuro pt/ot/st passed swallow eval neurology following. arrange for snf 2. hx htn allow permissive htn
--- NOTE | 2017-11-17 18:20 | P.PNNEU ---
Subjective Subjective Comments: No acute events reported No headache more alert and speech improving but still makes errors in speech Active Medications: Active Medications Acetaminophen (Tylenol) 650 mg PO Q6H PRN PRN Reason: PAIN 1-10 AND/OR FEVER >101F Last Admin: 11/15/17 17:46 Dose: 650 mg Acyclovir (Zovirax 5% Oint) 0 applicatio TOPICAL QID [facility] Last Admin: 11/17/17 13:16 Dose: 1 applicatio Al Hydroxide/Mg Hydroxide (Milk Of Magnesia Liq) 30 ml PO Q12H PRN PRN Reason: Mild Constipation Albuterol (Duoneb Neb (Prn)) 1 ampul NEB Q2HR NEB PRN PRN Reason: WHEEZING Aspirin (Ecotrin) 81 mg PO DAILY [facility] Last Admin: 11/17/17 09:44 Dose: 81 mg Bisacodyl (Dulcolax Supp) 10 mg RECTAL DAILY PRN PRN Reason: SEVERE CONSITIPATION Chlorhexidine Gluconate (Chlorhexidine 2% Cloth) 3 pack TOPICAL DAILY@0400 [facility] Stop: 11/20/17 03:59 Last Admin: 11/17/17 06:00 Dose: Not Given Chlorhexidine Gluconate (Chlorhexidine 2% Cloth) 3 pack TOPICAL DAILY@0400 PRN PRN Reason: Extra cloth needed Stop: 11/20/17 03:59 Clopidogrel Bisulfate (Plavix) 75 mg PO DAILY [facility] Last Admin: 11/17/17 09:44 Dose: 75 mg Cyanocobalamin (Vitamin B12) 1,000 mcg PO DAILY [facility] Last Admin: 11/17/17 09:44 Dose: 1,000 mcg Heparin Sodium (Porcine) (Heparin Inj) 5,000 units SQ Q8H [facility] Last Admin: 11/17/17 13:53 Dose: 5,000 units Sodium Chloride (Ns Inj) 1,000 mls @ 84 mls/hr IV.CONT .[id number] [facility] Last Admin: 11/17/17 13:53 Dose: 84 mls/hr Lactulose (Lactulose Liq) 30 ml PO DAILY PRN PRN Reason: SEVERE CONSITIPATION Levothyroxine Sodium (Synthroid) 125 mcg PO DAILY@0600 [facility] Last Admin: 11/17/17 06:01 Dose: 125 mcg Lorazepam (Ativan Inj) 0.5 mg IV.PUSH Q4H PRN PRN Reason: AGITATION Methocarbamol (Robaxin) 500 mg PO TID [facility] Last Admin: 11/17/17 13:53 Dose: 500 mg Metoprolol Tartrate (Lopressor) 50 mg PO BID [facility] Last Admin: 11/17/17 09:43 Dose: 50 mg Ondansetron HCl (Zofran Inj) 4 mg IV.PUSH Q6H PRN PRN Reason: NAUSEA OR VOMITING Pantoprazole Sodium (Protonix) 40 mg PO DAILY [facility] Last Admin: 11/17/17 09:44 Dose: 40 mg Pravastatin Sodium (Pravachol) 20 mg PO DAILY [facility] Last Admin: 11/17/17 09:44 Dose: 20 mg Senna/Docusate Sodium (Azalea-Colace) 1 tab PO BID [facility] Last Admin: 11/17/17 09:44 Dose: 1 tab Sennosides (Senokot) 17.2 mg PO Q12H PRN PRN Reason: Moderate Constipation Sodium Chloride (Ns Flush) 2 ml IV.FLUSH BID [facility] Last Admin: 11/17/17 09:44 Dose: 2 ml Sodium Chloride (Ns Flush) 2 ml IV.FLUSH PRN PRN PRN Reason: FLUSH AFTER USING IV ACCESS Tramadol HCl (Ultram) 50 mg PO Q6H PRN PRN Reason: pain 3-10 Vitamin B Complex/Vit C/Folic Acid (Nephrocaps) 1 tab PO DAILY [facility] Last Admin: 11/17/17 09:44 Dose: 1 tab Allergies/Adverse Reactions: Allergies Allergy/AdvReac Type Severity Reaction Status Date / Time codeine AdvReac Intermediate Rash Verified 11/14/17 19:23 AN UNKNOWN ANTIBIOTIC...PCN Allergy Unknown Edema Uncoded 11/14/17 19:23 OK Physical Exam Vital signs: Vital Signs 11/16/17 20:00 11/16/17 20:07 11/16/17 22:00 Temperature 98.8 F Pulse Rate 78 66 Respiratory Rate 19 Blood Pressure 189/78 H Pulse Oximetry 97 97 11/17/17 00:00 11/17/17 04:57 11/17/17 08:00 Temperature 97.3 F L 97.3 F L 97.8 F Pulse Rate 79 68 87 Respiratory Rate 17 16 18 Blood Pressure 200/85 H 193/88 H 203/95 H Pulse Oximetry 95 97 98 11/17/17 09:00 11/17/17 12:00 Temperature 98 F Pulse Rate 80 87 Respiratory Rate 20 Blood Pressure 152/70 H Pulse Oximetry 92 L Intake & Output 11/16/17 11/17/17 11/17/17 18:59 06:59 18:59 Intake Total 700 / 700 1060 / 1060 1000 / 1000 Output Total 500 / 500 1000 / 1000 Balance 200 / 200 60 / 60 1000 / 1000 Weight 58.1 kg Intake: IV 100 / 100 1000 / 1000 1000 / 1000 NS Inj 1,000 ML @ 84 mls/hr IV. 100 / 100 1000 / 1000 1000 / 1000 CONT .[id number] [facility] Rx#:[id number] Oral 600 / 600 60 / 60 Output: Urine 500 / 500 1000 / 1000 Other: # Voids 2 4 Date of Last Bowel Movement 11/15/17 11/15/17 11/15/17 # Bowel Movements 0 0 - Routine Neurological Exam alert, speech is more fluent, makes some paraphasic errors, follows commands better CN intact MOTOR 5/5 BUE and BLE Objective Laboratory Results - last 24 hr 11/17/17 11/17/17 06:59 06:59 WBC 6.6 RBC 4.06 Hgb 12.2 Hct 35.0 MCV 86.3 MCH 29.9 MCHC 34.7 RDW 13.9 Plt Count 107 L MPV 10.4 Neut % (Auto) 58.1 Lymph % (Auto) 15.0 [place] % (Auto) 25.5 H Eos % (Auto) 1.0 Baso % (Auto) 0.4 Neut # (Auto) 3.8 Lymph # (Auto) 1.0 [place] # (Auto) 1.7 H Eos # (Auto) 0.1 Baso # (Auto) 0.0 WBC Differential . Differential Comment Auto diff final Sodium 142 Potassium 3.4 L Chloride 110 H Carbon Dioxide 23.5 Anion Gap 9 BUN 16 Creatinine 1.50 H Estimated GFR 33 L Random Glucose 119 H Calcium 8.3 L Review/Management - Diagnosis (1) CVA (cerebral vascular accident) Code(s): I63.9 - Cerebral infarction, unspecified Status: Acute Current Visit: Yes - Review/Management Plan: continue current care continue plavix and asa Ok from neuro standpoint to dc home tomorrow if stable and ok with medicine service with outpatient speech therapy follow up with nm in 2 -3 weeks
[2017-11-18] MEDS: Chlorhexidine Gluconate 2% 1 Pack (2 Cloths) TOPICAL SCH (03:03)
[2017-11-18] MEDS: Heparin - SQ 10,000 UNITS/ML Vial SQ SCH ×3 (05:09→20:15)
[2017-11-18] MEDS: Levothyroxine 125 MCG Tablet PO SCH (05:09)
[2017-11-18] MEDS: Sod Chloride 0.9% Inj 1,000 ML IV.CONT SCH (08:35)
[2017-11-18] MEDS: Vitamin B Complex/Vit C/Folic Tablet PO SCH (08:37)
[2017-11-18] MEDS: Senna/Docusate Sodium 8.6/50 MG Tablet PO SCH ×2 (08:37→20:08)
[2017-11-18] MEDS: Methocarbamol 500 MG Tablet PO SCH ×3 (08:37→17:08)
[2017-11-18] MEDS: Metoprolol Tartrate 50 MG Tablet PO SCH ×2 (08:37→20:08)
[2017-11-18] MEDS: ACYCLOVIR 5% TOPICAL SCH ×4 (08:38→20:09)
--- NOTE | 2017-11-18 11:38 | P.PNIM ---
Subjective Interval history: Pt complains of back pain this morning Nurse reports that the pt is very impulsive and tries to get out of bed and leave the room often, this is better when her family is around Pt tolerating oral intake BP is quite elevated Physical Exam Vital signs: Vital Signs 11/17/17 12:00 11/17/17 20:00 11/18/17 00:00 Temperature 98 F 98.3 F 98.0 F Pulse Rate 87 80 77 Respiratory Rate 20 18 18 Blood Pressure 152/70 H 187/85 H 212/94 H Pulse Oximetry 92 L 97 96 11/18/17 01:13 11/18/17 05:00 11/18/17 08:00 Temperature 98.1 F 97.8 F Pulse Rate 77 76 Respiratory Rate 18 18 Blood Pressure 193/83 H 187/78 H 208/93 H Pulse Oximetry 95 96 Intake & Output 11/17/17 11/18/17 11/18/17 18:59 06:59 18:59 Intake Total 1000 / 1000 1999 / 1999 Balance 1000 / 1000 1999 Weight 60 kg Intake: IV 1000 / 1000 1999 NS Inj 1,000 ML @ 84 mls/hr IV. 1000 / 1000 1000 / 1000 CONT .[id number] [facility] Rx#:[id number] Other: # Voids 4 Date of Last Bowel Movement 11/15/17 11/17/17 11/18/17 # Bowel Movements 1 Narrative: General: NAD, Awake and alert Chest: CTA Cardiac: Regular Abd: +BS, soft ND/NT Ext: No edema Neuro: Mostly fluid speech, some word finding difficulty, JOSEPH Results - Labs CBC & Chem 7: 11/17/17 06:59 11/17/17 06:59 - Imaging Chest X-Ray 11/14/17 18:41 CONCLUSION: No evidence of acute cardiopulmonary disease. Head CT 11/14/17 18:41 CONCLUSION: 1. No bleed or other acute intracranial abnormality demonstrated. No perceptible acute ischemic change. 2. Atrophy and chronic white matter changes. Report was called by [Dr. Martinez to Dr. Villalpando at 6:54 PM ] Head CTA 11/14/17 18:41 CONCLUSION: Acute appearing vessel truncation involving posterior branch vessels of the left middle cerebral artery distribution. Findings were discussed with the neurologist, Dr. Anguiano, by phone. Neck CTA 11/14/17 18:41 CONCLUSION: Chronic left greater than right atherosclerotic changes of the bilateral carotid bifurcations as described without hemodynamically significant narrowing. Head MRI 11/16/17 00:00 CONCLUSION: 1. Small subacute infarct of the left temporal and parietal lobes. 2. No bleed, mass effect or midline shift. Head MRA 11/16/17 00:00 CONCLUSION: Intracranial vessels are all patent without aneurysmal disease. Neck MRA 11/16/17 00:00 CONCLUSION: 1. No significant stenosis involving either carotid artery or vertebral artery. The extracranial ICAs are very tortuous bilaterally. _ Percent stenosis is calculated using the diameter of the stenotic region over the diameter of the normal distal internal carotid artery _ Assessment and Plan - Assessment (1) Ischemic cerebrovascular accident (CVA) Code(s): I63.9 - Cerebral infarction, unspecified Status: Acute Plan: Left MCA acute cva, thrombus. Wernicke aphasia - Pt is an 87 y/o female with HTN who [place] [facility] [place] a stroke alert when she developed aphasia that day. - Head CT (11/14/17) 1. No bleed or other acute intracranial abnormality demonstrated. No perceptible acute ischemic change. 2. Atrophy and chronic white matter changes. - Head CTA (11/14/17): - Acute appearing vessel truncation involving posterior branch vessels of the left middle cerebral artery distribution. - Neck CTA (11/14/17): - Chronic left greater than right atherosclerotic changes of the bilateral carotid bifurcations as described without hemodynamically significant narrowing. - Pt was [place] [facility] [place] but it was felt that the pt was outside the window for TPA and felt to not be a candidate for IR mechanical thrombectomy - Neurology following. - Pt is on Aspirin, Plavix and Pravachol - She has been allowed permissive hypertension and her home dose of Metoprolol was added back on 11/15 but her BP has continued to be significantly elevated. - Pt has been followed by PT/OT/ST - Head MRI (11/16/17): 1. Small subacute infarct of the left temporal and parietal lobes. 2. No bleed, mass effect or midline shift. - Head MRA (11/16/17): - Intracranial vessels are all patent without aneurysmal disease. - Neck MRA (11/16/17): - No significant stenosis involving either carotid artery or vertebral artery. The extracranial ICAs are very tortuous bilaterally. - 2D echo (11/15/17): - Mild concentric left ventricular hypertrophy. Estimated ejection fraction in the range of 60-65%. - Diffuse calcification of the aortic valve. Mild aortic valve stenosis. - There is trace tricuspid valve regurgitation. - Pt passed swallow eval and tolerating oral intake - Speech is improving. - Pts family is reportedly refusing SNF. She lives at home with her niece. Hypertension -Pt was resumed on home med, Metoprolol 50mg BID on 11/15 - BP is still running high Hypothyroidism - Cont. Levothyroxine Anxiety - Alprazolam PRN DVT prophylaxis with Heparin
[2017-11-18] MEDS: Lisinopril 5 MG Tablet PO SCH ×2 (12:44→20:09)
[2017-11-19] MEDS: Chlorhexidine Gluconate 2% 1 Pack (2 Cloths) TOPICAL SCH (03:45)
[2017-11-19] MEDS: Heparin - SQ 10,000 UNITS/ML Vial SQ SCH (06:46)
[2017-11-19] MEDS: Levothyroxine 125 MCG Tablet PO SCH (06:46)
[2017-11-19] MEDS: Metoprolol Tartrate 50 MG Tablet PO SCH (08:21)
[2017-11-19] MEDS: Methocarbamol 500 MG Tablet PO SCH (08:21)
[2017-11-19] MEDS: Lisinopril 5 MG Tablet PO SCH (08:22)
[2017-11-19] MEDS: Vitamin B Complex/Vit C/Folic Tablet PO SCH (08:22)
[2017-11-19] MEDS: ACYCLOVIR 5% TOPICAL SCH (08:22)
[2017-11-19] MEDS: Senna/Docusate Sodium 8.6/50 MG Tablet PO SCH (08:22)
[2017-11-19 08:39] VITALS: O2SAT 97
--- NOTE | 2017-11-19 10:56 | P.DCO ---
- Physical Therapy Order: Evaluate and treat, Improve ambulation, Strength and gait training - Occupational Therapy Order: Evaluate and treat, Improve ADL, Fine motor coordination - Speech Therapy Order: To improve: Speech and communication skills, Cognitive skills - Home Health Nursing Order: Medical education, Signs/symptoms of disease process, Nursing assessment with vital signs - Certification I have seen patient Jan Kerns on 11/19/17. My clinical findings support the need for the requested home health care services because: Deconditioned with increased weakness I certify that my clinical findings support that this patient is homebound because: Unsteady gait/balance
[2017-11-19 11:42] VITALS: BP 168/74; PULSE 64; RESP 18; TEMP 98.2
--- NOTE | 2017-11-19 12:07 | P.DS ---
<Kat Ambrosio - Last Filed: 11/19/17 11:58> Date of admission: 11/14/17 20:08 Primary care physician: Alejandro Helms MD Attending physician on discharge: Kelby Mathur Anticipated date of discharge: 11/19/17 Brief History from admission: 87-year-old very pleasant female presents as a stroke alert. The patient's niece says that the patient was last seen normal around 14:30 today. Both she and the patient took a nap, and when the niece woke up (about 30 minutes prior to arrival), the patient was "speaking gibberish". The patient is unable to provide meaningful contribution to HPI due to aphasia. CT of the head shows Acute appearing vessel truncation involving posterior branch vessels of the left middle cerebral artery distribution. This was too small and distal for interventional radiology to intervene. The patient is outside the window for TPA which was discussed by ED attending and neurologist on-call Dr. Anguiano. DS: Diagnosis - Discharge Diagnosis (1) CVA (cerebral vascular accident) Status: Acute DS: Medications - Discharge Medications Prescriptions: clopidogrel [Plavix] 75 mg PO DAILY 30 Days #30 tab lisinopril 5 mg PO BID 30 Days #60 tab DS: Summary Hospital Course: Left MCA acute cva, thrombus. Wernicke aphasia - Pt is an 87 y/o female with HTN who presented to the ED at [facility] on 11/14/17 as a stroke alert when she developed aphasia that day. Pt was admitted to [facility] but it was felt that the pt was outside the window for TPA and felt to not be a candidate for IR mechanical thrombectomy. Neurology following. Imaging studies included: - Head CT (11/14/17) 1. No bleed or other acute intracranial abnormality demonstrated. No perceptible acute ischemic change. 2. Atrophy and chronic white matter changes. - Head CTA (11/14/17): - Acute appearing vessel truncation involving posterior branch vessels of the left middle cerebral artery distribution. - Neck CTA (11/14/17): - Chronic left greater than right atherosclerotic changes of the bilateral carotid bifurcations as described without hemodynamically significant narrowing. - Head MRI (11/16/17): 1. Small subacute infarct of the left temporal and parietal lobes. 2. No bleed, mass effect or midline shift. - Head MRA (11/16/17): - Intracranial vessels are all patent without aneurysmal disease. - Neck MRA (11/16/17): - No significant stenosis involving either carotid artery or vertebral artery. The extracranial ICAs are very tortuous bilaterally. - 2D echo (11/15/17): - Mild concentric left ventricular hypertrophy. Estimated ejection fraction in the range of 60-65%. - Diffuse calcification of the aortic valve. Mild aortic valve stenosis. - There is trace tricuspid valve regurgitation. - Pt passed swallow eval and tolerating oral intake. Speech is improving. Pt was recommended to be on Aspirin, Plavix and Pravachol. She was allowed permissive hypertension and her home dose of Metoprolol was added back on 11/15 but her BP has continued to be significantly elevated. Lisinopril 5mg po BID was added on 11/18/17 with improvement in her BP. Pt has been followed by PT/OT/ ST and we will continue this with HHC/PT/OT/ST upon discharge as the pts family is reportedly refusing SNF. She lives at home with her niece and has good family support per the pt and family at bedside. Pt is being discharged on Plavix 75mg po daily. Discussed with the family that the pt should avoid NSAIDs as she was previously using anti-inflammatories for back pain. They state that the pt has Tramadol at home but that it does not work well for her. They are planning to continue seeing a chiropractor for her back issues. Pt is to followup with her PCP, Dr. Helms, in 1 week Pt is to followup with Dr. Anguiano in 2 weeks. Hypertension -Pt was resumed on home med, Metoprolol 50mg BID on 11/15. Lisinopril 5mg po BID was added on 11/18 due to persistently elevated BP with systolic over 200. Her BP improved on 11/19. This will be monitored by [facility] upon discharge. Hypothyroidism - Cont. Levothyroxine Anxiety - Alprazolam PRN - Time Spent with Patient Total time spent providing and/or coordinating discharge services: - Quality: Stroke Last date observed well: 11/14/17 Last time observed well: 14:30 - Quality: VTE Deep Vein Thrombosis/Pulmonary Embolism Present on Admission: No Exam Vital signs: Vital Signs 11/18/17 12:00 11/18/17 16:00 11/18/17 20:00 Temperature 97.3 F L 98.5 F 98.4 F Pulse Rate 72 70 79 Respiratory Rate 18 18 14 Blood Pressure 174/73 H 191/76 H 178/78 H Pulse Oximetry 96 96 98 11/19/17 00:00 11/19/17 07:00 11/19/17 11:41 Temperature 98.2 F 98 F 98.2 F Pulse Rate 77 72 64 Respiratory Rate 16 16 18 Blood Pressure 163/74 H 165/70 H 168/74 H Pulse Oximetry 95 97 97 Intake & Output 11/18/17 11/19/17 11/19/17 18:59 06:59 18:59 Intake Total 480 / 480 1000 / 1000 360 / 360 Balance 480 / 480 1000 / 1000 360 / 360 Intake: IV 1000 / 1000 NS Inj 1,000 ML @ 84 mls/hr IV. 1000 / 1000 CONT .[id number] [facility] Rx#:[id number] Oral 480 / 480 360 / 360 Other: # Voids 3 4 2 Date of Last Bowel Movement 11/18/17 11/18/17 11/18/17 Results Procedures completed during hospitalization: no procedures performed - Impressions ITS Impressions Chest X-Ray 11/14/17 18:41 CONCLUSION: No evidence of acute cardiopulmonary disease. Head CT 11/14/17 18:41 CONCLUSION: 1. No bleed or other acute intracranial abnormality demonstrated. No perceptible acute ischemic change. 2. Atrophy and chronic white matter changes. Report was called by [Dr. Martinez to Dr. Villalpando at 6:54 PM ] Head CTA 11/14/17 18:41 CONCLUSION: Acute appearing vessel truncation involving posterior branch vessels of the left middle cerebral artery distribution. Findings were discussed with the neurologist, Dr. Anguiano, by phone. Neck CTA 11/14/17 18:41 CONCLUSION: Chronic left greater than right atherosclerotic changes of the bilateral carotid bifurcations as described without hemodynamically significant narrowing. Head MRI 11/16/17 00:00 CONCLUSION: 1. Small subacute infarct of the left temporal and parietal lobes. 2. No bleed, mass effect or midline shift. Head MRA 11/16/17 00:00 CONCLUSION: Intracranial vessels are all patent without aneurysmal disease. Neck MRA 11/16/17 00:00 CONCLUSION: 1. No significant stenosis involving either carotid artery or vertebral artery. The extracranial ICAs are very tortuous bilaterally. _ Percent stenosis is calculated using the diameter of the stenotic region over the diameter of the normal distal internal carotid artery _ <Kelby Mathur - Last Filed: 11/19/17 12:27> Date of admission: 11/14/17 20:08 Primary care physician: Alejandro Helms MD DS: Diagnosis - Discharge Diagnosis (1) CVA (cerebral vascular accident) Status: Acute DS: Summary - Time Spent with Patient Total time spent providing and/or coordinating discharge services: Greater than 30 minutes Exam Vital signs: Vital Signs 11/18/17 16:00 11/18/17 20:00 11/19/17 00:00 Temperature 98.5 F 98.4 F 98.2 F Pulse Rate 70 79 77 Respiratory Rate 18 14 16 Blood Pressure 191/76 H 178/78 H 163/74 H Pulse Oximetry 96 98 95 11/19/17 07:00 11/19/17 11:41 Temperature 98 F 98.2 F Pulse Rate 72 64 Respiratory Rate 16 18 Blood Pressure 165/70 H 168/74 H Pulse Oximetry 97 97 Intake & Output 11/18/17 11/19/17 11/19/17 18:59 06:59 18:59 Intake Total 480 / 480 1000 / 1000 360 / 360 Balance 480 / 480 1000 / 1000 360 / 360 Intake: IV 1000 / 1000 NS Inj 1,000 ML @ 84 mls/hr IV. 1000 / 1000 CONT .[id number] [facility] Rx#:[id number] Oral 480 / 480 360 / 360 Other: # Voids 3 4 2 Date of Last Bowel Movement 11/18/17 11/18/17 11/18/17 Results - Impressions ITS Impressions Chest X-Ray 11/14/17 18:41 CONCLUSION: No evidence of acute cardiopulmonary disease. Head CT 11/14/17 18:41 CONCLUSION: 1. No bleed or other acute intracranial abnormality demonstrated. No perceptible acute ischemic change. 2. Atrophy and chronic white matter changes. Report was called by [Dr. Martinez to Dr. Villalpando at 6:54 PM ] Head CTA 11/14/17 18:41 CONCLUSION: Acute appearing vessel truncation involving posterior branch vessels of the left middle cerebral artery distribution. Findings were discussed with the neurologist, Dr. Anguiano, by phone. Neck CTA 11/14/17 18:41 CONCLUSION: Chronic left greater than right atherosclerotic changes of the bilateral carotid bifurcations as described without hemodynamically significant narrowing. Head MRI 11/16/17 00:00 CONCLUSION: 1. Small subacute infarct of the left temporal and parietal lobes. 2. No bleed, mass effect or midline shift. Head MRA 11/16/17 00:00 CONCLUSION: Intracranial vessels are all patent without aneurysmal disease. Neck MRA 11/16/17 00:00 CONCLUSION: 1. No significant stenosis involving either carotid artery or vertebral artery. The extracranial ICAs are very tortuous bilaterally. _ Percent stenosis is calculated using the diameter of the stenotic region over the diameter of the normal distal internal carotid artery _ Discharge Plan - Discharge Order Discharge Orders: Discharge Order (Routine); Ordered 11/19/17 Ordered By: Kat Ambrosio - Discharge Details Anticipated Discharge Date: 11/19/17 - Physicians Team Primary Care Provider: Alejandro Helms Attending Provider: Adam Amor Other Providers: Carmen Hernandez MD ; Kelby Mathur MD
== END 2017-11-19 12:47 | disposition home health service (06) ==
LOC: NEPE 18:34 → NEDA 20:08 → HIMC 11-15 01:05 → N05 11-17 16:18
PROVIDERS: ADMIT Internal Medicine Critical Care Medicine; ATTEND Internal Medicine Critical Care Medicine

== ENCOUNTER 2018-05-30 11:01 | Observation (INO) ==
--- NOTE | 2018-05-30 11:31 | ED ---
Triage General Chief Complaint: Chest Pain Source: patient, family and old records reviewed Pre-Hospital Care Pre-Hospital Care Given: No History of Present Illness HPI narrative: 87-year-old woman with a history of CAD, stents a couple years ago, presents with palpitations and chest pain ongoing since this morning. No pain now. Looks generally well. Protocol chest pain labs, EKG reviewed. Await med bed. Home Meds Home Medications Medication Instructions Recorded Confirmed B complex with C#20-folic acid 1 cap PO DAILY 11/14/17 12/08/17 [Nephrocaps] acyclovir See Label Instructions .ROUTE 11/14/17 12/08/17 .COMPLEX alprazolam 0.25 mg PO DAILY PRN 11/14/17 12/08/17 aspirin [Aspir-81] 81 mg PO DAILY 11/14/17 12/08/17 coenzyme Q10 [Co Q-10] 100 mg PO DAILY 11/14/17 12/08/17 cyanocobalamin (vitamin B-12) 1,000 mcg PO DAILY 11/14/17 12/08/17 [Vitamin B-12] levothyroxine 125 mcg PO DAILY 11/14/17 12/08/17 lovastatin 20 mg PO DAILY 11/14/17 12/08/17 methocarbamol 500 mg PO TID 11/14/17 12/08/17 metoprolol tartrate 50 mg PO BID 11/14/17 12/08/17 potassium gluconate 595 mg PO DAILY 11/14/17 12/08/17 triamcinolone acetonide See Label Instructions .ROUTE 11/14/17 12/08/17 .COMPLEX Allergies Allergies Allergy/AdvReac Type Severity Reaction Status Date / Time codeine AdvReac Intermediate Rash Verified 12/08/17 08:47 AN UNKNOWN ANTIBIOTIC...PCN Allergy Unknown Edema Uncoded 12/08/17 08:47 OK Vital Signs Recall Vital Signs: Initial Documented Vital Signs Temperature 98.4 F 05/30/18 11:09 Pulse Rate 98 H 05/30/18 11:09 Respiratory Rate 18 05/30/18 11:09 Blood Pressure 218/87 H 05/30/18 11:09 Pulse Oximetry 98 05/30/18 11:09 Last Documented Vital Signs Temperature 98.4 F 05/30/18 11:09 Pulse Rate 98 H 02/20/19 11:09 Respiratory Rate 18 05/30/18 11:09 Blood Pressure 218/87 H 05/30/18 11:09 Pulse Oximetry 98 05/30/18 11:09 Vital Signs 3 l l l l 05/30/18 11:09 l l Height 157.48 cm l l Weight 58.967 kg l l BMI 23.8 l l BP 218/87 H l l Blood Pressure Location l l Position Sitting l l Respiration 18 l l Pulse 98 H l l Pulse Source l l Temp 98.4 F l l Temp Source Oral l l Pulse Oximetry (%) 98 l l Oxygen Delivery Method l l Oxygen Flow Rate l l Comment [facility] Medical History Medical History Bladder mass (Acute) Bulging disc (Acute) CAD (coronary artery disease) (Acute) HTN (hypertension) (Acute) Surgical History Surgical History Hx of heart surgery (Acute) Social History Social History Substance History: No History of Abuse Second Hand Smoke Exposure: Yes Smoking Status: Never smoker How Often Do You Have a Drink Containing Alcohol: Monthly or less Recent Travel in [place] within the Last 8 Weeks: No Recent Out of Country Travel within the Last 8 Weeks: No
[2018-05-30 11:50] LABS: Baso % (Auto) 0.3 % (0.0-2.0); Eos % (Auto) 0.2 % (0.0-4.0); Hemoglobin 10.9 gm/dL (11.6-15.3); Lymph # (Auto) 0.5 th/mm3 (1.0-4.8); Lymph % (Auto) 4.7 % (9.0-44.0); Mean Corpuscular Hemoglobin 28.9 pg (27.0-34.0); Mean Corpuscular Volume 87.6 fL (80.0-100.0); Mean Platelet Volume 10.3 fL (7.0-11.0); Mono # (Auto) 2.5 th/mm3 (0.0-0.9); Mono % (Auto) 22.2 % (0.0-8.0); Neut # (Auto) 8.3 th/mm3 (1.8-7.7); Neut % (Auto) 72.6 % (16.0-70.0); Platelet Count 122 th/mm3 (150-450); Red Blood Count 3.77 mil/mm3 (4.00-5.30); White Blood Count 11.5 th/mm3 (4.0-11.0)
[2018-05-30 12:08] LABS: Albumin 4.1 g/dL (3.4-5.0); Anion Gap 11 meq/L (5-15); Aspartate Aminotransferase 19 U/L (15-37); Blood Urea Nitrogen 24 mg/dL (7-18); Calcium 8.7 mg/dL (8.5-10.1); Carbon Dioxide 24.4 meq/L (21.0-32.0); Chloride 106 meq/L (98-107); Glomerular Filtration Rate 24 mL/min (>89); Glucose,Random 125 mg/dL (74-106); Lipase 117 U/L (73-393); Potassium 3.9 meq/L (3.5-5.1); Sodium 141 meq/L (136-145)
[2018-05-30 12:09] LABS: Alanine Aminotransferase 15 U/L (10-53)
[2018-05-30 12:13] LABS: Alkaline Phosphatase 86 U/L (45-117); Total Protein 7.5 g/dL (6.4-8.2); Troponin I 0.11 ng/mL (0.02-0.05)
--- NOTE | 2018-05-30 12:17 | ED ---
HPI General Chief Complaint: Chest Pain Stated Complaint: Cardiac Complaint Time Seen by Provider: 05/30/18 12:18 Source: patient, family and old records reviewed Mode of arrival: ambulatory Limitations: no limitations History of Present Illness HPI narrative: Primary care is Dr. Helms [employer] Account Executive is Dr. Griffith Patient has a past medical history of KS with stent approximately 2 to as much as 4 years ago. Also has past medical history of hypertension hypercholesterolemia. Patient comes in complaining of substernal chest pain onset at 0500 which woke her up, radiating towards her back, rates it an 8 out of 10, patient stated she took baby aspirin at home. MD complaint: Reports chest pain STEMI Alert: No Onset (ago): hour(s) (7) Duration: intermittent Onset: during rest Pain location: Reports substernal Severity: moderate Severity scale (1-10): 5 Quality: Reports tightness and heaviness Pain radiation: Reports none Relieving factors: nothing Exacerbating factors: nothing Treatments prior to arrival chest pain: Reports aspirin Related Data On Oral Contraceptives: No Home Medications Medication Instructions Recorded Confirmed B complex with C#20-folic acid 1 cap PO DAILY 11/14/17 12/08/17 [Nephrocaps] acyclovir See Label Instructions .ROUTE 11/14/17 12/08/17 .COMPLEX alprazolam 0.25 mg PO DAILY PRN 11/14/17 12/08/17 aspirin [Aspir-81] 81 mg PO DAILY 11/14/17 12/08/17 coenzyme Q10 [Co Q-10] 100 mg PO DAILY 11/14/17 12/08/17 cyanocobalamin (vitamin B-12) 1,000 mcg PO DAILY 11/14/17 12/08/17 [Vitamin B-12] levothyroxine 125 mcg PO DAILY 11/14/17 12/08/17 lovastatin 20 mg PO DAILY 11/14/17 12/08/17 methocarbamol 500 mg PO TID 11/14/17 12/08/17 metoprolol tartrate 50 mg PO BID 11/14/17 12/08/17 potassium gluconate 595 mg PO DAILY 11/14/17 12/08/17 triamcinolone acetonide See Label Instructions .ROUTE 11/14/17 12/08/17 .COMPLEX Allergies Allergy/AdvReac Type Severity Reaction Status Date / Time codeine AdvReac Intermediate Rash Verified 12/08/17 08:47 AN UNKNOWN ANTIBIOTIC...PCN Allergy Unknown Edema Uncoded 12/08/17 08:47 OK Review of Systems ROS: all other systems reviewed are negative PMFSH History History Provided By: Patient Medical History Medical History Bladder mass (Acute) Bulging disc (Acute) CAD (coronary artery disease) (Acute) HTN (hypertension) (Acute) Surgical History Surgical History Hx of heart surgery (Acute) Social History Social History Substance History: No History of Abuse Second Hand Smoke Exposure: Yes Smoking Status: Never smoker How Often Do You Have a Drink Containing Alcohol: Monthly or less Recent Travel in [facility] within the Last 8 Weeks: No Recent Out of Country Travel within the Last 8 Weeks: No Exam Narrative Exam Narrative: GENERAL: Elderly 87-year-old female patient in no apparent distress. SKIN: Warm and dry. HEAD: Atraumatic. Normocephalic. EYES: Pupils equal and round. No scleral icterus. No injection or drainage. ENT: No nasal bleeding or discharge. Mucous membranes pink and moist. NECK: Trachea midline. No JVD. CARDIOVASCULAR: Regular rate and rhythm. no rubs or gallops RESPIRATORY: No accessory muscle use. Clear to auscultation. Breath sounds equal bilaterally. GASTROINTESTINAL: Abdomen soft, non-tender, nondistended. No rebound or guarding MUSCULOSKELETAL: Extremities without clubbing, cyanosis, or edema. No obvious deformities. NEUROLOGICAL: Awake and alert. No obvious cranial nerve deficits. Motor grossly within normal limits. Five out of 5 muscle strength in the arms and legs. Normal speech. PSYCHIATRIC: Appropriate mood and affect; insight and judgment normal. Course Initial Documented Vital Signs Temperature 98.4 F 05/30/18 11:09 Pulse Rate 98 H 05/30/18 11:09 Respiratory Rate 18 05/30/18 11:09 Blood Pressure 218/87 H 05/30/18 11:09 Pulse Oximetry 98 05/30/18 11:09 Last Documented Vital Signs Temperature 98.4 F 05/30/18 11:09 Pulse Rate 98 H 05/30/18 11:09 Respiratory Rate 18 05/30/18 11:09 Blood Pressure 218/87 H 05/30/18 11:09 Pulse Oximetry 98 05/30/18 11:09 Medical Decision Making MDM Narrative Medical decision making narrative: No major leukocytosis left shift noted. Mild anemia of 10.9/33. Decreased platelet count of 122 Normal liver pancreatic functions. Elevated creatinine 1.98 with decreased GFR otherwise electrolytes are within normal limits Troponin [address] abdomen and pelvis performed on November 2017 did not show any evidence of AAA Unfortunately there is no CT chest on record, there is however a CT head neck and MRI from a previous CVA none of which show any aneurysm A call has been made to [facility] for admission The patient has been started on aspirin and nitro metoprolol IV Medical Screen Exam Complete: Yes Emergency Medical Condition: Yes Lab Data Result diagrams: 05/30/18 11:43 05/30/18 11:43 Lab Results 05/30/18 05/30/18 Range/Units 11:43 11:43 WBC 11.5 H (4.0-11.0) th/mm3 RBC 3.77 L (4.00-5.30) mil/mm3 Hgb 10.9 L (11.6-15.3) gm/dL Hct 33.0 L (35.0-46.0) % MCV 87.6 (80.0-100.0) fL MCH 28.9 (27.0-34.0) pg MCHC 33.0 (32.0-36.0) % RDW 13.0 (11.6-17.2) % Plt Count 122 L (150-450) th/mm3 MPV 10.3 (7.0-11.0) fL Prelim Diff (Auto) Slide review pending Neut % (Auto) 72.6 H (16.0-70.0) % Lymph % (Auto) 4.7 L (9.0-44.0) % [place] % (Auto) 22.2 H (0.0-8.0) % Eos % (Auto) 0.2 (0.0-4.0) % Baso % (Auto) 0.3 (0.0-2.0) % Neut # (Auto) 8.3 H (1.8-7.7) th/mm3 Lymph # (Auto) 0.5 L (1.0-4.8) th/mm3 [place] # (Auto) 2.5 H (0.0-0.9) th/mm3 Eos # (Auto) 0.0 (0.0-0.4) th/mm3 Baso # (Auto) 0.0 (0.0-0.2) th/mm3 WBC Differential Manual diff final Seg Neuts % (Manual) 82 H (16-70) % Band Neuts % (Manual) 1 (0-6) % Lymphocytes % (Manual) 6 L (9-44) % Monocytes % (Manual) 11 H (0-8) % Abs Neuts (Manual) 9.5 H (1.8-7.7) th/mm3 Differential Comment . Platelet Estimate Low L (Normal) Platelet Morphology Enlarged H (Normal) RBC Morphology Normal (Normal) Sodium 141 (136-145) meq/L Potassium 3.9 (3.5-5.1) meq/L Chloride 106 (98-107) meq/L Carbon Dioxide 24.4 (21.0-32.0) meq/L Anion Gap 11 (5-15) meq/L BUN 24 H (7-18) mg/dL Creatinine 1.98 H (0.50-1.00) mg/dL Estimated GFR 24 L (>89) mL/min Random Glucose 125 H (74-106) mg/dL Calcium 8.7 (8.5-10.1) mg/dL Total Bilirubin 0.7 (0.2-1.0) mg/dL AST 19 (15-37) U/L ALT 15 (10-53) U/L Alkaline Phosphatase 86 (45-117) U/L Troponin I 0.11 H (0.02-0.05) ng/mL Total Protein 7.5 (6.4-8.2) g/dL Albumin 4.1 (3.4-5.0) g/dL Lipase 117 (73-393) U/L ECG Data EKG Prior to Arrival: No Attestation: I personally reviewed and interpreted this ECG as follows: Prior ECG tracings: not available for review Interpretation: Normal sinus rhythm, 90 bpm, PACs, left axis deviation, normal intervals, no evidence of any ST elevation KS pattern noted. Discharge Plan Discharge Disposition Patient Disposition: ED Admit(ED Internal Use Only) Discharge Condition Condition: Fair Discharge Details Diagnosis: Non-STEMI (non-ST elevated myocardial infarction), Hypertension Physicians Team ED Provider: Johnny Ingram Rxs /Orders / Referrals /Forms Prescriptions: No Action methocarbamol 500 mg Tablet 500 mg PO TID RF: 0 cyanocobalamin (vitamin B-12) [Vitamin B-12] 1,000 mcg Tablet 1,000 mcg PO DAILY RF: 0 aspirin [Aspir-81] 81 mg Tablet,Delayed Release (Dr/Ec) 81 mg PO DAILY RF: 0 alprazolam 0.25 mg Tablet 0.25 mg PO DAILY PRN (Reason: Anxiety) RF: 0 acyclovir 5 % Ointment See Label Instructions .ROUTE .COMPLEX RF: 0 levothyroxine 125 mcg Tablet 125 mcg PO DAILY RF: 0 triamcinolone acetonide 0.1 % Ointment See Label Instructions .ROUTE .COMPLEX RF: 0 metoprolol tartrate 50 mg Tablet 50 mg PO BID RF: 0 B complex with C#20-folic acid [Nephrocaps] 1 mg Capsule 1 cap PO DAILY RF: 0 lovastatin 20 mg Tablet 20 mg PO DAILY RF: 0 coenzyme Q10 [Co Q-10] 100 mg Capsule 100 mg PO DAILY RF: 0 potassium gluconate 595 mg (99 mg) Tablet 595 mg PO DAILY RF: 0 Discharge Instructions Patient Printed Instructions: Chest Pain (ED) Status ED Status: With Doctor
[2018-05-30 12:19] LABS: Lymphocytes 6 % (9-44); Monocytes 11 % (0-8); RBC Morphology Normal (Normal)
[2018-05-30] MEDS: Metoprolol Inj 5 MG/5 ML Vial IV.PUSH SCH ×3 (12:29→12:45)
[2018-05-30] MEDS ORDERED: Sod Chloride 0.9% Inj 1,000 ML IV.SIG ONE (12:41)
[2018-05-30] MEDS ORDERED: Acetaminophen 325 MG Tablet PO PRN (12:45)
[2018-05-30] MEDS ORDERED: Dextrose 50% in Water 50 ML Vial IV.PUSH PRN (12:50)
[2018-05-30] MEDS ORDERED: hydrALAZINE HCl Inj 20 MG/ML Vial IV.PUSH ONE (12:51)
--- NOTE | 2018-05-30 13:29 | P.HPIM ---
History of Present Illness Primary Care Physician: Alejandro Helms MD History of Present Illness: Ms. Kerns is an 87 y/o female with CAD s/p PTCA with stent to the mid LAD and RCA in 2011, hx of CVA in 11/2017, HTN, CKD, stage 4, and hyperlipidemia. [place] [facility] [place] with complaints of chest pain. The pt reported to her family some intermittent left sided chest discomfort and palpitations. She reports that the pain increases with movement of pressure placed on the chest wall as well but they report that this is unrelated to the chest pain she had this morning. The pts daughter reported that the pt was doing some cleaning and moving things around yesterday but that this was not unusual activity for her. There was no reported increased strenuous activity, no injury/trauma, or cough. When the pts symptoms persisted her family brought her to the ED for further evaluation. Her labs in the ED noted a mildly elevated troponin I of 0.11. Her EKG noted NSR, no noted ST depression or elevation. Her BP was elevated in the ED as well. Past Medical Hx: CVA in 2017 CAD HTN Aortic stenosis CKD, stage 4 Hyperlipidemia DJD (hip) Hypothyroidism 2D echo (11/2017): - Mild concentric left ventricular hypertrophy. - Estimated EF 60-65%. - Mild aortic valve stenosis. - There is trace tricuspid valve regurgitation. Past Surgical Hx: PTCA with stent to the mid LAD and RCA in 2011 Cataract surgery Bunionectomy Family Hx: Noncontributory Social Hx: No reported alcohol, tobacco or illicit drug use Pt is Lives with her niece Diagnosis (1) Chest pain: (2) Chest wall pain: (3) Elevated troponin: (4) CAD (coronary artery disease): (5) Hypertension: (6) Hypothyroidism: (7) Hyperlipidemia: Inpatient Certification Inpatient Certification: I certify that the inpatient services were ordered in accordance with Medicare regulations governing the order. This includes certification that hospital inpatient services are reasonable and necessary and in the case of services not specified as inpatient-only under 42 CFR 419.22(n), that they are appropriately provided as inpatient services in accordance to with the 2-midnight benchmark under 43 CFR 412.3(e) Medications and Allergies Allergies Allergy/AdvReac Type Severity Reaction Status Date / Time codeine AdvReac Intermediate Rash Verified 12/08/17 08:47 AN UNKNOWN ANTIBIOTIC...PCN Allergy Unknown Edema Uncoded 12/08/17 08:47 OK Home Medications Medication Instructions Recorded Confirmed Type B complex with C#20-folic acid 1 cap PO DAILY 11/14/17 05/30/18 History [Nephrocaps] alprazolam 0.25 mg PO DAILY PRN 11/14/17 05/30/18 History aspirin [Aspir-81] 81 mg PO DAILY 11/14/17 05/30/18 History coenzyme Q10 [Co Q-10] 100 mg PO DAILY 11/14/17 05/30/18 History cyanocobalamin (vitamin B-12) 1,000 mcg PO DAILY 11/14/17 05/30/18 History [Vitamin B-12] levothyroxine 125 mcg PO DAILY 11/14/17 05/30/18 History lovastatin 20 mg PO DAILY 11/14/17 05/30/18 History metoprolol tartrate 50 mg PO BID 11/14/17 05/30/18 History potassium gluconate 595 mg PO DAILY 11/14/17 05/30/18 History clopidogrel [Plavix] 75 mg PO DAILY 05/30/18 05/30/18 History Active Medications: Active Medications Acetaminophen (Tylenol) 650 mg PO Q4H PRN PRN Reason: Temp > 100.4 Al Hydroxide/Mg Hydroxide (Milk Of Augustina Lynn) 30 ml PO Q12H PRN PRN Reason: Mild Constipation Dextrose (D50w Vial) 50 ml IV.PUSH UNSCH PRN PRN Reason: PER HYPOGLYCEMIA PROTOCOL Glucagon (Glucagon Inj) 1 mg OTHER PRN PRN PRN Reason: for Hypoglycemia Protocol Insulin Aspart (Novolog Insulin Correctional Sugar Inj) 0 unit SQ ACHS SANDEE; Protocol Ondansetron HCl (Zofran Inj) 4 mg IV.PUSH Q6H PRN PRN Reason: NAUSEA OR VOMITING Senna/Docusate Sodium (Azalea-Colace) 1 tab PO BID SANDEE Sodium Chloride (Ns Flush) 2 ml IV.FLUSH UNSCH PRN PRN Reason: FLUSH AFTER USING IV ACCESS Sodium Chloride (Ns Flush) 2 ml IV.FLUSH BID SANDEE Sodium Chloride (Ns Flush) 2 ml IV.FLUSH PRN PRN PRN Reason: FLUSH AFTER USING IV ACCESS Physical Exam Vital signs: Last Vital Signs Temp 98.4 F 05/30/18 11:09 Pulse 87 05/30/18 13:25 Resp 18 05/30/18 13:25 BP 191/79 H 05/30/18 13:25 Pulse Ox 99 05/30/18 13:25 Narrative: GENERAL: NAD, AAOx3 SKIN: Warm and dry. HEAD: Atraumatic. Normocephalic. EYES: Pupils equal and round. No scleral icterus. No injection or drainage. ENT: No nasal bleeding or discharge. Mucous membranes pink and moist. NECK: Trachea midline. No JVD. CARDIOVASCULAR: Regular rate and rhythm. RESPIRATORY: No accessory muscle use. Clear to auscultation. Breath sounds equal bilaterally. GASTROINTESTINAL: Abdomen soft, non-tender, nondistended. Hepatic and splenic margins not palpable. MUSCULOSKELETAL: Extremities without clubbing, cyanosis, or edema. No obvious deformities. NEUROLOGICAL: Awake and alert. No obvious cranial nerve deficits. Motor grossly within normal limits. Five out of 5 muscle strength in the arms and legs. Normal speech. PSYCHIATRIC: Appropriate mood and affect; insight and judgment normal. Results Labs CBC & Chem 7: 05/30/18 11:43 05/30/18 11:43 Caprini VTE Risk Assessment Caprini VTE Risk Assessment: Moderate/High Risk (score >= 2) Caprini Risk Assessment Model: Point Value = 1 Point Value = 2 Point Value = 3 Point Value = 5 Age 41-60 Minor surgery BMI > 25 kg/m2 Swollen legs Varicose veins or History of unexplained or recurrent spontaneous Oral contraceptives or hormone replacement Sepsis (< 1 month) Serious lung disease, including pneumonia (< 1 month) Abnormal pulmonary function Acute myocardial infarction Congestive heart failure (< 1 month) History of inflammatory bowel disease Medical patient at bed rest Age 61-74 Arthroscopic surgery Major open surgery (> 45 min) Laparoscopic surgery (> 45 min) Malignancy Confined to bed (> 72 hours) Immobilizing plaster cast Central venous access Age >= 75 History of VTE Family history of VTE Factor V Leiden Prothrombin [id number] Lupus anticoagulant Anticardiolipin antibodies Elevated serum homocysteine Heparin-induced thrombocytopenia Other congenital or acquired thrombophilia Stroke (< 1 month) Elective arthroplasty Hip, pelvis, or leg fracture Acute spinal cord injury (< 1 month) Prophylaxis Regimen: Total Risk Factor Score Risk Level Prophylaxis Regimen 0-1 Low Early ambulation 2 Moderate Order ONE of the following: *Sequential Compression Device (SCD) *Heparin 5000 units SQ BID 3-4 Higher Order ONE of the following medications: *Heparin 5000 units SQ TID *Enoxaparin/Lovenox 40 mg SQ daily (WT < 150 kg, CrCl > 30 mL/min) *Enoxaparin/Lovenox 30 mg SQ daily (WT < 150 kg, CrCl > 10-29 mL/min) *Enoxaparin/Lovenox 30 mg SQ BID (WT < 150 kg, CrCl > 30 mL/min) AND/OR *Sequential Compression Device (SCD) 5 or more Highest Order ONE of the following medications: *Heparin 5000 units SQ TID (Preferred with Epidurals) *Enoxaparin/Lovenox 40 mg SQ daily (WT < 150 kg, CrCl > 30 mL/min) *Enoxaparin/Lovenox 30 mg SQ daily (WT < 150 kg, CrCl > 10-29 mL/min) *Enoxaparin/Lovenox 30 mg SQ BID (WT < 150 kg, CrCl > 30 mL/min) AND *Sequential Compression Device (SCD) Assessment and Plan Assessment (1) Chest pain: Code(s): R07.9 - Chest pain, unspecified Status: Acute (2) Chest wall pain: Code(s): R07.89 - Other chest pain Status: Acute (3) Elevated troponin: Code(s): R74.8 - Abnormal levels of other serum enzymes Status: Acute (4) CAD (coronary artery disease): Code(s): I25.10 - Atherosclerotic heart disease of [place] coronary artery without angina pectoris Status: Acute (5) Hypertension: Code(s): I10 - Essential (primary) hypertension Status: Acute (6) Hypothyroidism: Code(s): E03.9 - Hypothyroidism, unspecified Status: Acute (7) Hyperlipidemia: Code(s): E78.5 - Hyperlipidemia, unspecified Status: Acute Plan Chest pain Chest wall pain Elevated Troponin - Pt is an 87 y/o female with CAD s/p PTCA with stent to the mid LAD and RCA in 2011, hx of CVA in 11/2017, HTN, CKD, stage 4, and hyperlipidemia. [place] [facility] [place] with complaints of chest pain. The pt reported to her family some intermittent left sided chest discomfort and palpitations. She reports that the pain increases with movement of pressure placed on the chest wall as well but they report that this is unrelated to the chest pain she had this morning. The pts daughter reported that the pt was doing some cleaning and moving things around yesterday but that this was not unusual activity for her. There was no reported increased strenuous activity, no injury/trauma, or cough. - Her labs in the ED noted a mildly elevated troponin I of 0.11. - Her EKG noted NSR, no noted ST depression or elevation. - Serial CE and EKGs today - Give a dose of Solu-Medrol today for the chest wall pain - Cont. Nitro paste 0.5inch Q6H - SL Nitro PRN chest pain - Morphine PRN chest pain - Oxygen as needed - Continue BB, ASA, Plavix, statin - Supportive care HTN - Home meds continued - Monitor - Vasotec and Clonidine PRN Hyperlipidemia - Cont. home meds Hypothyroidism - Cont. home meds Attending Attestation Patient examined. Assessment and plan formulated with Kat Ambrosio PA-C. I agree with the above. cp. reproducible pain to palpation over left ant chest wall. bp elevated. might be pain related. monitor tele for arhythmia. pt had c/o palpitation solumedrol x 2 doses for chest wall pain. pt has ckd 4. dc ct chest with contrast as ordered by pcp trend troponins. spoke with pt and family. she would not be a good C candidate cont nitro. add prn bp meds. _ (1) Hypertension Qualifiers: Hypertension type:
[2018-05-30] MEDS ORDERED: ALPRAZolam 0.25 MG Tablet PO PRN (13:30)
[2018-05-30] MEDS ORDERED: Morphine Sulfate Inj 2 MG/ML Vial IV.PUSH PRN (14:07)
[2018-05-30] MEDS ORDERED: MethylPREDNISolone Sod Succinate Inj 125 MG/2 ML Vial IV.PUSH ONE (15:41)
[2018-05-30] MEDS: Insulin NovoLOG Aspart Correctional Sugar Inj SQ SCH ×2 (17:19→20:42)
--- NOTE | 2018-05-30 19:59 | ECG ---
Date Performed: 05/30/2018 Time Performed: 11:21:59 PTAGE: 87 years EKG: Sinus rhythm WITH OCCASIONAL SUPRAVENTRICULAR PREMATURE COMPLEXES MARKED LEFT AXIS DEVIATION ABNORMAL ECG Since PREVIOUS TRACING , no significant change noted PREVIOUS TRACIN01/06/2012 06.02 DOCTOR: Dasha Rodríguez Interpretating Date/Time 05/30/2018 19:58:45
[2018-05-30] MEDS: Senna/Docusate Sodium 8.6/50 MG Tablet PO SCH (20:42)
[2018-05-30] MEDS: Metoprolol Tartrate 50 MG Tablet PO SCH (20:42)
[2018-05-30] MEDS ORDERED: MethylPREDNISolone Sod Succinate Inj 40 MG/ML Vial IV.PUSH ONE (21:00)
[2018-05-30 23:16] LABS: Troponin I 0.12 ng/mL (0.02-0.05)
[2018-05-31] MEDS ORDERED: Sodium Chlor 0.9% Inj 500 ML IV.CONT SCH (04:30)
[2018-05-31] MEDS ORDERED: Levothyroxine 125 MCG Tablet PO SCH (06:00)
[2018-05-31 06:26] LABS: Baso % (Auto) 0.2 % (0.0-2.0); Hematocrit 30.5 % (35.0-46.0); Hemoglobin 10.3 gm/dL (11.6-15.3); Lymph # (Auto) 0.5 th/mm3 (1.0-4.8); Lymph % (Auto) 7.8 % (9.0-44.0); Mean Corpuscular HGB Conc 33.8 % (32.0-36.0); Mean Corpuscular Hemoglobin 29.8 pg (27.0-34.0); Mean Platelet Volume 11.6 fL (7.0-11.0); Mono # (Auto) 0.8 th/mm3 (0.0-0.9); Mono % (Auto) 11.8 % (0.0-8.0); Neut # (Auto) 5.2 th/mm3 (1.8-7.7); Neut % (Auto) 80.2 % (16.0-70.0); Platelet Count 105 th/mm3 (150-450); Red Blood Count 3.46 mil/mm3 (4.00-5.30); Red Cell Distribution Width 12.9 % (11.6-17.2); White Blood Count 6.5 th/mm3 (4.0-11.0)
[2018-05-31 06:53] LABS: Calcium 8.7 mg/dL (8.5-10.1); Carbon Dioxide 23.1 meq/L (21.0-32.0); Potassium 3.8 meq/L (3.5-5.1)
--- NOTE | 2018-05-31 07:57 | P.DIET ---
Nutritional Evaluation Type of nutrition evaluation: initial Nutrition screening: Weight Loss > 10 lbs Objective - Diagnosis non-STEMI, HTN urgency - Objective Diet Order: Diabetic Objective Comments: PMH; CAD, CVA, HTN, CKD Assessment Assessment: Weight loss screen; Pt presents to ED with chest pain radiating towards back and is currently at nutritional risk related to recent unplanned weight loss. Pt currently ordered for diabetic diet with 75% PO intake last night, otherwise good PO intake not yet established. Will continue to monitor PO intake and assess need for nutritional supplement as appropriate. Recommendations: 1. Monitor PO intake and assess need for nutritional supplement as appropriate Dietitian to Monitor: PO Intake, Medical course
[2018-05-31] MEDS: Metoprolol Tartrate 50 MG Tablet PO SCH (08:14)
[2018-05-31] MEDS: Senna/Docusate Sodium 8.6/50 MG Tablet PO SCH (08:15)
[2018-05-31] MEDS: Insulin NovoLOG Aspart Correctional Sugar Inj SQ SCH (08:15)
[2018-05-31 08:45] VITALS: BP 145/69; RESP 18; TEMP 97.8
--- NOTE | 2018-05-31 09:28 | P.PNIM ---
Subjective Interval history: pt feels back to baseline today. denies any cp. no cp with movement or breathing. Physical Exam Vital signs: Last Vital Signs Temp 97.8 F 05/31/18 08:00 Pulse 78 05/31/18 08:52 Resp 18 05/31/18 08:00 BP 145/69 H 05/31/18 08:00 Pulse Ox 96 05/31/18 08:00 Narrative: oriented nad heart reg. loudest at [facility] lung cta abd s/nt ext no edema Results Labs CBC & Chem 7: 05/31/18 04:57 05/31/18 04:57 Assessment and Plan Assessment (1) Chest pain: Code(s): R07.9 - Chest pain, unspecified Status: Acute (2) Chest wall pain: Code(s): R07.89 - Other chest pain Status: Acute (3) Elevated troponin: Code(s): R74.8 - Abnormal levels of other serum enzymes Status: Acute (4) CAD (coronary artery disease): Code(s): I25.10 - Atherosclerotic heart disease of [place] coronary artery without angina pectoris Status: Acute (5) Hypertension: Code(s): I10 - Essential (primary) hypertension Status: Acute (6) Hypothyroidism: Code(s): E03.9 - Hypothyroidism, unspecified Status: Acute (7) Hyperlipidemia: Code(s): E78.5 - Hyperlipidemia, unspecified Status: Acute Plan Chest pain Chest wall pain Elevated Troponin - Pt is an 87 y/o female with CAD s/p PTCA with stent to the mid LAD and RCA in 2011, hx of CVA in 11/2017, HTN, CKD, stage 4, and hyperlipidemia. She [place] [facility] [place] with complaints of chest pain. The pt reported to her family some intermittent left sided chest discomfort and palpitations. She reports that the pain increases with movement of pressure placed on the chest wall as well but they report that this is unrelated to the chest pain she had this morning. The pts daughter reported that the pt was doing some cleaning and moving things around yesterday but that this was not unusual activity for her. There was no reported increased strenuous activity, no injury/trauma, or cough. - Her EKG noted NSR, no noted ST depression or elevation. Pt had flat troponin and it would appear she is not having an ACS. Pt clearly had muskuloskeletal pain on admission easily reproduced by pressing on left ant chest wall and family did witness this examination. Overnight the pain resolved with iv solumedrol as an antiinflammatory. her bp normalized as pain was controlled. Long talk with pt/family at bedside. Ordering any CT scans with contrast or performing any type of LHC with contrast would likely put her into kidney failure. They agree with conservative management as she is feeling better and we have no proof of ACS at this time. ambulate and dc home if no recurrent cp. HTN - Home meds continued - Monitor - Vasotec and Clonidine PRN Hyperlipidemia - Cont. home meds Hypothyroidism - Cont. home meds Progress Note: Quality VTE Deep Vein Thrombosis/Pulmonary Embolism Present on Admission: No _ (1) Hypertension Qualifiers: Hypertension type:
[2018-05-31 09:39] VITALS: O2SAT 95
[2018-05-31 10:10] VITALS: PULSE 72
[2018-05-31 11:13] LABS: Calcium 8.1 mg/dL (8.5-10.1); Carbon Dioxide 22.4 meq/L (21.0-32.0); Potassium 3.8 meq/L (3.5-5.1)
--- NOTE | 2018-05-31 16:14 | ECG ---
Date Performed: 05/30/2018 Time Performed: 17:18:12 PTAGE: 87 years EKG: Sinus rhythm Severe right axis deviation Right ventricular hypertrophy Lateral T wave changes may be due to myoca rdial ischemia Abnormal ECG Since PREVIOUS TRACING , no significant change noted PREVIOUS TRACIN05/30/2018 11.21 DOCTOR: Dasha Rodríguez Interpretating Date/Time 05/31/2018 16:12:35
== END 2018-05-31 11:31 | disposition home or self-care (01) ==
LOC: NEPD 11:01 → NEDA 12:50 → INTOOBSV 12:50 → HCIS 13:51
PROVIDERS: ADMIT Hospitalist; ATTEND Hospitalist
DX: I25.2 Old myocardial infarction; Z86.73 Personal history of transient ischemic attack (TIA), and cerebral infarction without residual deficits; Z79.899 Other long term (current) drug therapy; E78.5 Hyperlipidemia, unspecified; M16.10 Unilateral primary osteoarthritis, unspecified hip; I12.9 Hypertensive chronic kidney disease with stage 1 through stage 4 chronic kidney disease, or unspecified chronic kidney disease; R00.2 Palpitations; E03.9 Hypothyroidism, unspecified; I25.10 Atherosclerotic heart disease of native coronary artery without angina pectoris; Z79.82 Long term (current) use of aspirin; Z95.5 Presence of coronary angioplasty implant and graft; Z77.22 Contact with and (suspected) exposure to environmental tobacco smoke (acute) (chronic); R74.8 Abnormal levels of other serum enzymes; I35.0 Nonrheumatic aortic (valve) stenosis; R07.89 Other chest pain; N18.4 Chronic kidney disease, stage 4 (severe)
CPT/HCPCS: 80048; 80053; 82550; 82948; 82962; 83690; 84484; 85025; 90774; 90775; 90784; 93005; 96361; 96372; 96374; 96375; 96376; 97162; 99285; C8952; G0378; G8987; G8988; J0360; J1815; J2270; J2920; J2930; J7030; J7040